=== PATIENT | male | born 2000 | race Caucasian/White ===

== ENCOUNTER 2022-05-02 16:24 | Outpatient (CLI) | payer BC, SELFPAY ==
[2022-05-02 17:24] LABS: Chloride* 105 mmol/L (96-114); Potassium* 3.8 mmol/L (3.6-5.1); Sodium* 140 mmol/L (135-149)
[2022-05-02 17:26] LABS: Cholesterol* 171 mg/dL (90-199); Creatinine* 0.9 mg/dL (0.5-1.5); Estimated Glomerular Filt Rate 124 ml/min
[2022-05-02 17:27] LABS: Blood Urea Nitrogen* 21 mg/dL (5-24); Carbon Dioxide* 23 mmol/L (20-32)
[2022-05-02 17:28] LABS: Calcium* 9.4 mg/dL (8.4-10.6); Glucose* 83 mg/dL (60-115); HDL Cholesterol* 30 mg/dL (>=40); LDL Cholesterol Calculated 73 mg/dL (<100); Triglycerides* 338 mg/dL (40-149)
[2022-05-02 17:31] LABS: C Reactive Protein* < 0.5 mg/dL (0.5-1.0)
[2022-05-04 19:30] LABS: Rheumatoid Factor <10 IU/mL (0-14)
[2022-05-05 00:11] LABS: Anti-Nuclear Ab(ANA)IgG ELISA None Detected (None Detected)
== END 2022-05-02 16:25 | disposition home or self-care (01) ==
PROVIDERS: PCP Family Medicine; Visit Provider Family Medicine
DX: I10 Essential (primary) hypertension (principal); M25.50 Pain in unspecified joint
CPT/HCPCS: 80048; 80061; 86039; 86140; 86431

== ENCOUNTER 2022-05-22 10:50 | Outpatient (CLI) | payer BC, SELFPAY ==
--- NOTE | 2022-05-22 11:30 | W.PM.STED ---
Stress Test Note Date Time Seen by Provider: 11:15 Date Seen: 05/22/22 Date of test: 05/22/22 Providers Referring provider: Manjit Dunn Primary care provider: Manjit Dunn Stress test physician: Aubree Lawton Stress Test Note Stress test ordered: Exercise Stress Test Indication for test: Chest pain Stress test medicine: None Results discussion: Resting EKG: Sinus rhythm, 97 beats per minute, no acute pathology. Resting blood pressure: 120/74 Stress test: Patient's cardiac stress test medical history was reviewed. He is consented on the stress test and agrees to proceed. He was exercised following standard Brayan protocol on the treadmill. Initially there was some artifact and malfunction of the V1 lead which was able to be corrected. He exercised to 10 minutes 8 seconds, stopping due to fatigue, maximal exercise tolerance. He had no chest pain, no arrhythmia was seen, no concerning ischemic change seen on the EKG. He achieved 11.7 metabolic equivalents at this work load. He had a maximum heart rate of 180 beats per minute which was 100% of a calculated target of 168. He had a maximal systolic blood pressure of 170 any rate pressure product of 27,540. Patient was discharged in stable condition, no concerns. With the maximum workload, he did note that he did get a headache and did have calf discomfort with the incline on the treadmill. His headache resolved with activity. 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 Impression: Subjectively negative, objectively negative treadmill exercise stress test. Follow up suggested: Await follow-up recommendations from Dr. Dunn.
[2022-05-22 12:11] VITALS: BP 136/58; PULSE 117; RESP 18
== END 2022-05-22 10:51 | disposition home or self-care (01) ==
PROVIDERS: PCP Family Medicine; Visit Provider Family Medicine
DX: R07.89 Other chest pain (principal)
CPT/HCPCS: 93016; 93017

== ENCOUNTER 2022-08-15 11:07 | Outpatient (CLI) | payer BC, SELFPAY | END 2022-08-15 11:08 | disposition home or self-care (01) | PROVIDERS: PCP Family Medicine; Visit Provider Family Medicine | DX: Z01.818 Encounter for other preprocedural examination (principal); I10 Essential (primary) hypertension | CPT/HCPCS: 80048 ==

== ENCOUNTER 2023-06-15 12:26 | Emergency (ER) | payer BC, SELFPAY ==
[2023-06-15 13:09] VITALS: BP 140/95; PULSE 78; RESP 16; TEMP 36.7; O2SAT 97; BMI 32.1
--- NOTE | 2023-06-15 13:27 | ED.GENADULT ---
HPI - General Adult General Chief complaint: Abdominal Pain Stated complaint: chest and stomach pains Time Seen by Provider: 06/15/23 13:03 Source: patient Mode of arrival: ambulatory Limitations: no limitations History of Present Illness HPI narrative: 23-year-old male coming in today complaining of abdominal pain. Pain is located in the epigastric region and does not radiate. Eating sometimes makes it worse. He has had it for or many months, has been constant over the last 2 days. He vomited recently also. Denies any blood in his vomitus. Denies any fevers or chills. Denies any weight loss. Every now and then he will have diarrhea. Denies any urinary symptoms. He also states that when he eats certain foods he feels a burning sensation all the way up to his throat. His diet is heavy on ?spicy food, chocolate and alcohol. Past medical history significant for anxiety, hypertension. Patient states he has not been taking his medications in the last 6-8 months. Patient had a stress test in 2022 which was unremarkable. Related Data Previous Rx's Medication Instructions Recorded lisinopril 20 1 tab PO DAILY #90 tabs 08/15/22 mg-hydrochlorothiazide 12.5 mg tablet sertraline 100 mg tablet 100 mg PO QDAY #30 tabs 08/15/22 Allergies Allergy/AdvReac Type Severity Reaction Status Date / Time Clavulanate Allergy Mild severe Uncoded 08/15/22 10:51 diarrhea Review of Systems Status of ROS: Reports: 10 or more systems reviewed and unremarkable except as noted in History and below [facility] Medical History Situational depression ?F43.21 - Adjustment disorder with depressed mood (ICD-10) Hypertension ?I10 - Essential (primary) hypertension (ICD-10) Generalized anxiety disorder ?F41.1 - Generalized anxiety disorder (ICD-10) Family History Father Heart disease Paternal Grandfather Heart disease Mother Family history of cervical cancer Social History Narrative: Single, no kids, nonsmoker, social EtOH, works at [employer] Smoking Status: Never smoker Do you use any of these nicotine containing products: None Second hand tobacco smoke exposure: No How often do you have a drink containing alcohol: 2-4 times a month How many standard drinks containing alcohol do you have on a typical day: 1 or 2 How often do you have six or more drinks on one occasion: Never AUDIT-C Alcohol total score: 2 Non-prescribed substance use: denies use Little interest or pleasure in doing things: not at all Feeling down, depressed, or hopeless: not at all service: No Exam Narrative: Exam Narrative: Well-nourished well-developed patient in no acute distress. Alert and oriented. Answers questions appropriately. Mood and affect are appropriate. Thoughts are goal oriented and rational. No tangential or magical thinking noted. Patient speaks in full sentences without needing to catch his breath. HEENT: Normocephalic atraumatic. Pupils are equally round reactive to light. Extraocular muscles are intact. Conjunctivae are moist without any icterus noted. Moist mucous membranes. Posterior pharynx is normal. Neck is soft. Cardiovascular: Heart is regular rate and rhythm S1 and S2 are present without any murmurs. Lungs: Clear to auscultation bilaterally no wheezes rhonchi or rales are appreciated. Patient takes deep breaths without any discomfort. Abdomen: Soft and nondistended with normal bowel sounds. No guarding or rebound. No masses or organomegaly appreciated. He does have epigastric tenderness. Extremities: Bilateral lower extremities are without edema. Skin: Well perfused without any obvious rashes. Const: Vital Signs, click to edit/add: Vital Signs - 24 hr 06/15/23 13:09 Temperature 98.1 F Pulse Rate [Pulse Oximeter] 78 Respiratory Rate 16 Blood Pressure [Le ft Upper Arm] 140/95 H Pulse Oximetry 97 Oxygen Delivery Me thod Room Air Course Vital Signs Vital signs: Initial Vital Signs Temperature 98.1 F 06/15/23 13:09 Temperature Source Temporal Artery Scan 06/15/23 13:09 Pulse Rate 78 06/15/23 13:09 Pulse Rhythm Regular 06/15/23 13:09 Respiratory Rate 16 06/15/23 13:09 Blood Pressure 140/95 H 06/15/23 13:09 Blood Pressure Mean 110 H 06/15/23 13:09 Blood Pressure Position Sitting 06/15/23 13:09 Pulse Oximetry 97 06/15/23 13:09 Oxygen Delivery Method Room Air 06/15/23 13:09 Vital Signs Temperature 98.1 F 06/15/23 13:09 Pulse Rate 78 06/15/23 13:09 Respiratory Rate 16 06/15/23 13:09 Blood Pressure 140/95 H 06/15/23 13:09 Pulse Oximetry 97 06/15/23 13:09 Oxygen Delivery Method Room Air 06/15/23 13:09 Temperature 98.1 F 06/15/23 13:09 Pulse Rate 78 06/15/23 13:09 Respiratory Rate 16 06/15/23 13:09 Blood Pressure 140/95 H 06/15/23 13:09 Pulse Oximetry 97 06/15/23 13:09 Oxygen Delivery Method Room Air 06/15/23 13:09 Medical Decision Making MDM Narrative Medical decision making narrative: 23-year-old male with epigastric abdominal discomfort- we discussed gastritis versus peptic ulcer. We discussed starting daily omeprazole. We discussed following up with his primary care provider in 4-6 weeks, sooner if symptoms get worse. We discussed dietary changes and recommend he start taking his medications again for high blood pressure. Medical Records Medical records reviewed: Yes I reviewed the patient's medical records Discharge Plan Discharge Clinical Impression: Gastritis, Gastroesophageal reflux disease Patient Disposition: Home, Self-Care Condition: Stable Additional Instructions: You likely have gastritis, which is an inflammation of the stomach, or a small ulcer. The treatment for both of these things is to reduce the amount of acid inside the stomach. You accomplish this by taking daily omeprazole. You can purchase this [id number]. Recommend you take this for 6 weeks. Recommend you follow-up with your primary care provider in 4-6 weeks for a follow-up, sooner if your symptoms are getting worse instead of better. It will take approximately 1 week for the discomfort to go way. In the meantime recommend not eating before bed, decreasing the amount of spicy foods, citrus, tomatoes, chocolate and alcohol you consume. Also, I recommend you start taking your blood pressure medications once again. Prescriptions: No Action lisinopril-hydrochlorothiazide 20-12.5 mg tablet 1 tab PO DAILY Qty: 90 3RF sertraline 100 mg tablet 100 mg PO QDAY Qty: 30 1RF Rx Instructions: 1/2 QD x 10 days then 1 QD Follow Up/Referrals: Manjit Dunn MD [Primary Care Provider] - Stand Alone Forms: MyHealth Info Instructions
[2023-06-15 13:40] VITALS: BP 145/80; PULSE 8; RESP 16; TEMP 36.7
--- OUTSIDE RECORDS SUMMARY | 2023-06-15 13:40 | XMS_ITS | Encounter Summary ---
Author Name Unknown Organization [facility] Address [address], [place] [address] Care Team Providers Care Medical Records Coder Name Role Phone Unavailable Primary Care Provider Unavailabl e Reason for Referral * Procedure/Equipment (Routine) - Incomplete Specialty Diagnoses / Procedures Referred By Contac t Referred To Contact Procedures JO Inlight Camera Images Talib Ibrahim MD [address] [place] [address] Referral ID Status Reason Start Date Expiration Date V isits Requested Visits Authorized [id number] Incomplete 09/05/2022 12/05/2023 1 1 * Procedure/Equipment (Routine) - Incomplete Specialty Diagnoses / Procedures Referred By Contac t Referred To Contact Procedures JO Arthroscopy Elbow Rt Talib Ibrahim MD [address] [place] [address] Referral ID Status Reason Start Date Expiration Date V isits Requested Visits Authorized [id number] Incomplete 09/05/2022 12/05/2023 1 1 Encounter Details Date Type Department Care Team Description 09/05/2022 Notes/Orders [facility] [address] [place] [address] Talib Ibrahim MD [address] [place] [address] Social History Tobacco Use Types Packs/Day Years Used Date Smoking Tobacco: Never Smokeless Tobacco: Never Alcohol Use Standard Drinks/Week Comments Yes 0 (1 standard drink = 0.6 oz pur e alcohol) Sex and Gender Information Value Date Recorded Sex Assigned at Not on file Gender Identity Not on file Sexual Orientation Not on file documented as of this encounter Plan of Treatment Scheduled Orders Name Type Priority Associated Diagnoses Orde r Schedule JO Inlight Camera Images RIS Foreign Images Routine Expected: 09/05/2022 (Approximate), Expires: 09/05/2023 documented as of this encounter Results * JO Arthroscopy Elbow Rt (09/05/2022 7:04 AM CDT) Anatomical Region Laterality Modality Upper Extremity, Elbow Endoscopy Narrative 09/05/2022 7:04 AM CDT This is an imaging order which does not require reading by a radiologist. The order is completed and status is final. Talib Ibrahim MD RAD NON-REPORTABLES documented in this encounter Visit Diagnoses Not on filedocumented in this encounter
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
--- OUTSIDE RECORDS SUMMARY | 2023-06-15 13:40 | XMS_ITS | Encounter Summary ---
Author Name Unknown Organization [facility] Address [address] [address] Care Team Providers Care Bi Application Developer Name Role Phone Unavailable Primary Care Provider Unavailabl e Encounter Details Date Type Department Care Team Description 09/05/2022 Orders Only HIM DEPARTMENT Provider, [place] [address] Social History Tobacco Use Types Packs/Day Years Used Date Smoking Tobacco: Never Smokeless Tobacco: Never Alcohol Use Standard Drinks/Week Comments Yes 0 (1 standard drink = 0.6 oz pur e alcohol) Sex and Gender Information Value Date Recorded Sex Assigned at Not on file Gender Identity Not on file Sexual Orientation Not on file documented as of this encounter Plan of Treatment Not on file documented as of this encounter Procedures Procedure Name Priority Date/Time Associated Diagnosis Comments EKG 09/05/2022 documented in this encounter Results * EKG (09/05/2022) Interface Provider EKG documented in this encounter Visit Diagnoses Not on filedocumented in this encounter
--- OUTSIDE RECORDS SUMMARY | 2023-06-15 13:40 | XMS_ITS | Encounter Summary ---
Author Name Unknown Organization [facility] Address [address] [address] Care Team Providers Care Pesticide Control Inspector Name Role Phone Unavailable Primary Care Provider Unavailabl e Reason for Visit * Auth/Cert (Routine) Specialty Diagnoses / Procedures Referred By Contac t Referred To Contact Diagnoses Elbow stiffness, left Procedures ARTHROSCOPic ELBOW DEBRIDEMENT OCD LESION, OSTEOCAPSULAR RELEASE, OPEN ULNAR NERVE DECOMPRESSION POSSIBLE TRANSPOSITION, MANIPULATION UNDER ANESTHESIA Referral ID Status Reason Start Date Expiration Date Visits Re quested Visits Authorized [id number] 1 1 Encounter Details Date Type Department Care Team Description 09/05/2022 8:30 AM CDT - 09/05/2022 11:20 AM CDT Surgery [facility] [address] [place] [address] Talib Ibrahim MD [address] [place] [id number] ARTHROSCOPIC ELBOW DEBRIDEMENT Osteochondritis Dissecans LESION, OSTEOCAPSULAR RELEASE, OPEN ULNAR NERVE DECOMPRESSION, MANIPULATION UNDER ANESTHESIA Social History Tobacco Use Types Packs/Day Years Used Date Smoking Tobacco: Never Smokeless Tobacco: Never Alcohol Use Standard Drinks/Week Comments Yes 0 (1 standard drink = 0.6 oz pur e alcohol) Sex and Gender Information Value Date Recorded Sex Assigned at Not on file Gender Identity Not on file Sexual Orientation Not on file documented as of this encounter Last Filed Vital Signs Vital Sign Reading Time Taken Comments Blood Pressure 116/50 09/05/2022 11:20 AM CDT Pulse 86 09/05/2022 11:20 AM CDT Temperature 36.6 ??C (97.8 ??F) 09/05/2022 11:16 AM C DT Respiratory Rate 09/05/2022 11:20 AM CDT Oxygen Saturation 97% 09/05/2022 11:20 AM CDT Inhaled Oxygen Concentration - - Weight 109.3 kg (241 lb) 09/05/2022 7:12 AM CDT Height 177.8 cm (5' 10) 09/05/2022 7:12 AM CDT Body Mass Index 34.58 09/05/2022 7:12 AM CDT documented in this encounter Discharge Instructions * Discharge Instructions* Anjelica Noriega RN - 09/05/2022 11:10 AM CDT Discharge Information The following was provided to the patient - Instruction sets: Caring for yourself after surgery Caring for yourself after Shoulder Arthroscopy Collateral information: Anesthesia Discharge Instructions Anesthesia - General Anesthesia - Regional Deep Vein Thrombosis How to prevent and treat constipation after surgery Prescription Opioid Pain Medication Shoulder Pendulum Exercises Patient take-homes: Ice pack(s) Shoulder immobilizer Sling Ultrasling * Attachments The following attachments cannot be sent through Care Everywhere. * DVT (Deep Vein Thrombosis): Prevention: General Info (Setswana) documented in this encounter Medications at Time of Discharge Medication Sig Dispensed Refills Start Date End Date gabapentin (NEURONTIN) 300 MG capsule Take 1 Capsule (300 mg) by mouth two times a day. 30 Capsule 3 09/05/2022 09/05/2023 lisinopril-hydroCHLOROth iazide (PRINZIDE) 20-12.5 MG tablet Take 1 Tablet by mouth daily. 0 methocarbamol (ROBAXIN) 500 MG tablet Take 1 Tablet (500 mg) by mouth three times a day as needed. 60 Tablet 1 09/05/2022 sertraline (ZOLOFT) 100 MG tablet Take 1 Tablet (100 mg) by mouth daily. 0 acetaminophen (TYLENOL) 500 MG tablet Take 2 Tablets (1,000 mg) by mouth every 8 hours. 270 Tablet 2 09/05/2022 10/20/2022 ketorolac (TORADOL) 10 MG tablet Take 1 Tablet (10 mg) by mouth every 8 hours for 3 doses. 3 Tablet 0 09/05/2022 09/06/2022 ondansetron (ZOFRAN-ODT) 4 MG disintegrating tablet Take 1 Tablet (4 mg) by mouth every 8 hours as needed. 10 Tablet 1 09/05/2022 10/20/2022 oxyCODONE (ROXICODONE) 5 MG immediate release tablet Take 1-2 Tablets (5-10 mg) by mouth every 4 hours as needed for Pain. 20 Tablet 0 09/05/2022 10/20/2022 sennosides-docusate sodium (SENOKOT S) 8.6-50 MG per tablet Take 1 Tablet by mouth daily. Hold for diarrhea 15 Tablet 1 09/05/2022 10/20/2022 documented as of this encounter Procedure Notes * Talib Ibrahim MD - 09/05/2022 8:05 PM CDT [facility] Orthopedic Surgery Operative Note PATIENT NAME: Hong Barnes DATE OF : 2000 DATE OF SURGERY: 09/05/2022 PRIMARY SURGEON: Talib Ibrahim MD ASSISTANTS: MAURA Smith MACHINE SIZER: There were no residents available to assist on this case. Andrew was required as a geriatric assistant to assist with positioning of the patient, prepping and draping of the patient, positioning of the extremity throughout the procedure allowing for retraction and implantation of the components. The assistant track coach also assisted with closure of the wound, placement of the dressings and transferred the patient to the recovery room in addition to entering postoperative orders. 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 Left elbow arthroscopic osteo-capsular release 2. Left elbow removal loose body 3. Left elbow debridement OCD lesion / chondroplasty 4. Left elbow capitellum microfracture 5. Left elbow manipulation under anesthesia 6. Left elbow ulnar nerve decompression in-situ Anesthesia: General Endotracheal Anesthesia + Local ESTIMATED BLOOD LOSS: 5 mL TOURNIQUET TIME: 70min at 250mm Hg SPECIMENS: None COMPLICATIONS: None FINDINGS: A complete diagnostic arthroscopy of the elbow was performed showing grade 0 radial head, 0 trochlea and 0 capitellar cartilage changes. There was a 1cm unstable OCD lession capitellum. The anterior compartment showed a loose body and spurs on the anterior humerus and coronoid, the posterior compartment showedspurs about the olecranon tip. Pre-op elbow range of motion measures 20- 100. Post-op elbow range of motion measures 0-140. IMPLANTS: None INDICATIONS: Hong Barnes is a 22 y.o. male who has failed conservative treatment for elbow stiffness and ulnar neuritis. discussing the options including injection, watching waiting, therapy, and surgery, he elected to proceed with surgery as a durable option. We discussed the risks benefits and alternatives to the above procedures including infection, recurrent stiffness, heterotopic ossification, ulnar nerve injury, delayed onset ulnar neuritis, and symptoms, arthritis, incomplete reliefof pain, weakness, neurovascular injury, cardiovascular injury, blood loss, hematoma, blood clot and even . The patient wished to proceed and consent was signed. DESCRIPTION OF PROCEDURE: Hong Barnes was identified in the preoperative holding area, where the correct extremity was marked. Consent was verified. The patient was wheeled to the operating theater and induced under general endotracheal anesthesia. An exam under anesthesia was performed with the findings noted above. The patient was positioned in the lateral decubitus position on a beanbag with all bony prominencespadded. The operative arm was prepped and draped in a standard fashion and held using an elbow positioner. A time-out was performed per hospital protocol. I performed a 6cm incision along the posteromedial elbow. I dissected sharply down to fascia. I then coagulated the bleeders. The ulnar nerve was bluntly identified proximally and was carefully released from the ligament of Macon through Clifton's ligament and then releasing both layers of the FCU fascia. The nerve did not sublux. Using a spinal needle I insufflated the joint with normal saline into the olecranon fossa. I then established an anterior medial working portal 1cm proximal and 1cm anterior to the medial epicondyle through the ulnar nerve incision with visualization of the nerve. . The scope was safely inserted into the joint and an anterior diagnostic arthroscopy was performed. Using an outside in technique I created an anterolateral working portal 1cm proximal and 1cm anterior to be medial epicondyle. I used an anterior to dissect the anterior supracondylar aspect of the humerus where an osteophyte was identified and excised with a bur. I removed spurring from the coronoid and a loose body was removed. I contoured both the anterior medial and anterior lateral aspect of the elbow by switching portals and re- created the coronoid and radial head fossa. I did a brief synovectomy with a shaver. I was able to used an elevator to release and remove the unstable capitellum OCD lesion and used a shaver to remove debris and unstable edges. I then performed a microfracture. I proceeded to the posterior aspect of the elbow with a direct posterior soft spot portal and a posterior lateral portal. I worked between these 2 with a shaver and ablator to remove all the bursa from the posterior aspect of the olecranon fossa. Osteophytes were removed from the olecranon tip, theolecranon fossa was contoured and olecranon tip was excised with a stefani. All instruments were removed from the elbow, the elbow was exsanguinated of arthroscopic fluid and the tourniquet was released. A manipulation under anesthesia was performed safely alternating from static progressive flexion and terminal extension resulting in improved range of motion noted above. The medial wound was closed with 3-0 vicryl for dermis and Monocryl for skin. The arthroscopic portals were closed with monacryl. The patient was safely awoken from anesthesia and transferred to the supine position. A sling was placed. There were no complications. I was scrubbed for all donato portions of procedure. All counts were correct. POSTOPERATIVE PLAN: Myeroff elbow release protocol. Elviaeroff elbow release OT protocol Same day and next day active visits while block is effective Immediate active, active assist, and passive elbow range of motion Edema control OT provided terminal extension night splint x 6 weeks min TID home exercise program including elbow wrist finger ROM. Sling while block is active and as needed for 2wks max Activities as tolerated no restrictions F/U: 2 and 6 weeks with Iban Carrera 12 ellen Ibrahim MD. No X-rays needed. Talib Ibrahim MD Attending Orthopaedic Surgeon [facility] Shoulder and Elbow Service * Sandip Alvarado PA-C - 09/05/2022 11:18 AM CDT [facility] Brief Operative Progress Note Surgery Date: 09/05/2022 Surgeon(s) and Role: * Talib Ibrahim MD - Primary * Sandip Alvarado PA-C - Assisting Pre-op Diagnosis: * Elbow stiffness, left [M25.622] Post-op Diagnosis: * Elbow stiffness, left [M25.622] Procedure(s) (LRB): ARTHROSCOPic ELBOW DEBRIDEMENT OCD LESION, OSTEOCAPSULAR RELEASE, OPEN ULNAR NERVE DECOMPRESSION, MANIPULATION UNDER ANESTHESIA (Left) EBL: 5 mL Tourniquet time: 70 min @ 250 mmHg Specimens: * No specimens in log * Complications / Findings: none I was asked by Dr. Ibrahim to assist with surgery. I positioned and prepped the patient. I assistedwith retraction and with closure of the incision. The procedure was medically necessary for an assistant track coach because Dr. Ibrahim needed the operative exposure and assistance that I provided. This allowedhim to safely and efficiently operate. The assistance that I provided reduced operative time which meant less general anesthetic for the patient. No qualified residents were available to assist. Sandip Alvarado PA-C documented in this encounter Plan of Treatment Not on file documented as of this encounter Procedures Procedure Name Priority Date/Time Associated Diagnosis Comments ARTHROSCOPY ELBOW 09/05/2022 8:3 6 AM CDT Elbow stiffness, left US ANESTHESIA GUIDED BLOCK Routine 09/05/2022 7:07 AM CDT documented in this encounter Results * US Anesthesia Guided Block (09/05/2022 7:07 AM CDT) Anatomical Region Laterality Modality Ultrasound Narrative 09/05/2022 7:07 AM CDT If an Anesthesia block was performed please see the Anesthesia encounter for documentation. ??This procedure was performed and interpreted by the performing provider. ?? Benjamin Hayes MD [facility] US documented in this encounter Visit Diagnoses Diagnosis Elbow stiffness, left- Primary Elbow stiffness, left documented in this encounter Admitting Diagnoses Diagnosis Elbow stiffness, left documented in this encounter Administered Medications Inactive Administered Medications - up to 3 most recent administrations Medication Order MAR Action Action Date Dose Rate Site acetaminophen (TYLENOL) tablet 1,000 mg 1,000 mg, Oral, ONCE (NON-SCHEDULED), Starting on Thu09/05/22 at 0707, Until Thu09/05/22 at 0729, For 1 dose, Adminster X1 pre-op., Pre-op Given 09/05/2022 7:29 AM CDT 1,000 mg bupivacaine-epinephrine PF (SENSORCAINE) 0.5% -[id number] injection ONCE PRN, Starting on Thu09/05/22 at 1054, Until Thu09/08/22 at 0301, Intra-op Given 09/05/2022 10:54 AM CDT 25 mL Left Elbow dexamethasone (DECADRON) injection 4-8 mg 4-8 mg, Intravenous, Q15MIN PRN, Other, Nausea, Starting on Thu09/05/22 at 1049, Until Thu09/08/22 at 0301, For 2 doses, Step 2 Dexamethasone 4-8 mg IV If not given in operating room. (Use in PACU only). If medication given in OR may give up to 8 mg total dose (including intra-operative dose) or go to step 3. If nausea not resolved in 15 minutes go to step 3 if ordered otherwise proceed to next antiemetic step.., PACU (only) fentaNYL (SUBLIMAZE) injection 25-50 mcg 25-50 mcg, Intravenous, PRN WITH PROCEDURES, Procedure, Starting on Thu09/05/22 at 0707, Until Thu09/08/22 at 0301, Administer per direction of Anesthesiologist., Pre-op fentaNYL (SUBLIMAZE) injection 25-50 mcg 25-50 mcg, Intravenous, [id number], Pain, Starting on Thu09/05/22 at 1049, Until Thu09/08/22 at 0301, PACU USE ONLY 25 mcg IV q5min prn based on the patient's pain scale rating for mild to moderate pain (1 to 5). 50 mcg IV q5min prn based on the patient's pain scale rating for moderate to severe pain (6 to 10). Total PACU fentanyl dose not to exceed 3 mcg/kg. Use fentanyl initially for a short acting agent for treatment of acute post operative pain. May use in conjuction with a longer acting agent for optimal pain control. Respiratory rate must be greater than 10 to administer medications., PACU (only) gabapentin (NEURONTIN) capsule 600 mg 600 mg, Oral, ONCE (NON-SCHEDULED), Starting on Thu09/05/22 at 0707, Until Thu09/08/22 at 0301, For 1 dose, Adminster X1 pre-op., Pre-op HYDROcodone-acetaminophen (NORCO) 5-325 MG per tablet 1-2 Tablet 1-2 Tablet, Oral, ONCE PRN, Pain, Starting on Thu09/05/22 at 1049, Until Thu09/08/22 at 0301, For 1 dose, Do not give within 4 hours of other acetaminophen containing products. If multiple oral opioids are ordered, please consult provider for order of use. One tablet PO once PRN based on patient pain scale rating for mild to moderate pain (1 to 5) Two tablets PO once PRN based on patient pain scale rating for moderate to severe pain (6 to 10), PACU (only) HYDROmorphone (DILAUDID) injection 0.2-0.3 mg 0.2-0.3 mg, Intravenous, Q15MIN PRN, Pain, Starting on Thu09/05/22 at 1049, Until Thu09/08/22 at 0301, PACU USE ONLY 0.2 mg IV q15min prn based on the patients pain scale rating for mild to moderate pain (1-5) 0.3 mg IV q15min prn based on the patients pain scale rating for moderate to severe pain (6 to 10) Total PACU hydromorphone dose not to exceed 2 mg per hour., PACU (only) hydrOXYzine HCl (ATARAX) tablet 25-50 mg 25-50 mg, Oral, ONCE PRN, Pain, Starting on Thu09/05/22 at 1049, Until Thu09/08/22 at 0301, For 1 dose, May be used with other medications as adjunct for pain. 25 mg PO once PRN based on patient pain scale rating for mild to moderate pain (1 to 5) 50 mg PO once PRN based on patient pain scale rating for moderate to severe pain (6 to 10), PACU (only) lactated ringers infusion Intravenous, at 30 mL/hr, CONTINUOUS, Starting on Thu09/05/22 at 0730, Pre-op Started 09/05/2022 10:47 AM CDT Started 09/05/2022 8:42 AM CDT lactated ringers infusion 30 mL/hr, Intravenous, CONTINUOUS, Starting on Thu09/05/22 at 0730, Pre-op midazolam (VERSED) injection 1-2 mg 1-2 mg, Intravenous, PRN WITH PROCEDURES, Sedation, Procedure, Starting on Thu09/05/22 at 0707, Until Thu09/08/22 at 0301, For 3 doses, May give up to 3 doses as needed., Pre-op ondansetron (ZOFRAN) injection 4 mg 4 mg, Intravenous, Q15MIN PRN, Nausea, Starting on Thu09/05/22 at 1049, Until Thu09/08/22 at 0301, For 2 doses, Step 1 Ondansetron 4 mg IV If not given in operating room. (PACU use only) If an intra-operative dose was given may repeat up to a total dose of 8 mg (including intra-operative dose). If nausea is not resolved in 15 minutes go to step 2 (Dexamethasone) if ordered otherwise proceed to next antiemetic step., PACU (only) oxyCODONE (ROXICODONE) immediate release tablet 5 mg 5 mg, Oral, Q4H PRN, Pain, Starting on Thu09/05/22 at 1137, Until Thu09/08/22 at 0301, PACU/Recovery Given 09/05/2022 11:38 AM CDT 5 mg oxyCODONE-acetaminophen (PERCOCET) 5-325 MG per tablet 1-2 Tablet 1-2 Tablet, Oral, ONCE PRN, Pain, Starting on Thu09/05/22 at 1049, Until Thu09/08/22 at 0301, For 1 dose, Do not give within 4 hours of other acetaminophen containing products. If multiple oral opioids are ordered, please consult provider for order of use. One tablet PO once PRN based on patient pain scale rating for mild to moderate pain (1 to 5) Two tablets PO once PRN based on patient pain scale rating for moderate to severe pain (6 to 10), PACU (only) documented in this encounter Active and Recently Administered Medications Times are shown in CDT. Scheduled Medication Order 09/03/2022 09/04/2022 09/05/2022 acetaminophen (TYLENOL) tablet 1,000 mg (COMPLETED) 1,000 mg, Oral, ONCE (NON-SCHEDULED), Starting on Thu09/05/22 at 0707, Until Thu09/05/22 at 0729, For 1 dose, Adminster X1 pre-op., Pre-op 0729 (Given - Provid er: Davida Brooks RN) ceFAZolin (ANCEF) 2 g in sodium chloride 0.9 % 50 mL IVPB (COMPLETED) 2 g, Intravenous, Administer over 30 Minutes, ONCE (NON-SCHEDULED), Starting on Thu09/05/22 at 0707, For 1 dose, For patient weight less than or equal to 119 kg PRE-OP, Pre-op 0842 (Started - Prov ider: Demetrius Menendez APRN, ALEJANDRO) gabapentin (NEURONTIN) capsule 600 mg 600 mg, Oral, ONCE (NON-SCHEDULED), Starting on Thu09/05/22 at 0707, Until Thu09/08/22 at 0301, For 1 dose, Adminster X1 pre-op., Pre-op tranexamic acid (CYKLOKAPRON) 1000 mg in sodium chloride 0.9% (10 mg/mL) 100 mL IVPB premix (COMPLETED)(Linked Group 1) 1,000 mg, Intravenous, ONCE, On Thu09/05/22 at 0730, For 1 dose, Administer once at incision and once at start of closure., Pre-op 0939 (Given - Provid er: Ty Bennett APRN, ALEJANDRO) Continuous Medication Order 09/03/2022 09/04/2022 09/05/2022 lactated ringers infusion Intravenous, at 30 mL/hr, CONTINUOUS, Starting on Thu09/05/22 at 0730, Pre-op 0842 (Started - Prov ider: Demetrius Menendez APRN, ALEJANDRO)0939 (Anesthesia Fluid - Provider: Ty Bennett APRN, ALEJANDRO)1047 (Started - Provider: Ty Bennett APRN, ALEJANDRO)1110 (Anesthesia Fluid - Provider: Ty Bennett APRN, ALEJANDRO) lactated ringers infusion 30 mL/hr, Intravenous, CONTINUOUS, Starting on Thu09/05/22 at 0730, Pre-op 0730 (Due) PRN Medication Order 09/03/2022 09/04/2022 09/05/2022 bupivacaine-epinephrine PF (SENSORCAINE) 0.5% -1:[id number] injection ONCE PRN, Starting on Thu09/05/22 at 1054, Until Thu09/08/22 at 0301, Intra-op 1054 (Given - Provid er: Sandip Alvarado PA-C) dexamethasone (DECADRON) injection 4-8 mg 4-8 mg, Intravenous, Q15MIN PRN, Other, Nausea, Starting on Thu09/05/22 at 1049, Until Thu09/08/22 at 0301, For 2 doses, Step 2 Dexamethasone 4-8 mg IV If not given in operating room. (Use in PACU only). If medication given in OR may give up to 8 mg total dose (including intra-operative dose) or go to step 3. If nausea not resolved in 15 minutes go to step 3 if ordered otherwise proceed to next antiemetic step.., PACU (only) fentaNYL (SUBLIMAZE) injection 25-50 mcg 25-50 mcg, Intravenous, PRN WITH PROCEDURES, Procedure, Starting on Thu09/05/22 at 0707, Until Thu09/08/22 at 0301, Administer per direction of Anesthesiologist., Pre-op fentaNYL (SUBLIMAZE) injection 25-50 mcg 25-50 mcg, Intravenous, [id number], Pain, Starting on Thu09/05/22 at 1049, Until Thu09/08/22 at 0301, PACU USE ONLY 25 mcg IV q5min prn based on the patient's pain scale rating for mild to moderate pain (1 to 5). 50 mcg IV q5min prn based on the patient's pain scale rating for moderate to severe pain (6 to 10). Total PACU fentanyl dose not to exceed 3 mcg/kg. Use fentanyl initially for a short acting agent for treatment of acute post operative pain. May use in conjuction with a longer acting agent for optimal pain control. Respiratory rate must be greater than 10 to administer medications., PACU (only) HYDROcodone-acetaminophen (NORCO) 5-325 MG per tablet 1-2 Tablet 1-2 Tablet, Oral, ONCE PRN, Pain, Starting on Thu09/05/22 at 1049, Until Thu09/08/22 at 0301, For 1 dose, Do not give within 4 hours of other acetaminophen containing products. If multiple oral opioids are ordered, please consult provider for order of use. One tablet PO once PRN based on patient pain scale rating for mild to moderate pain (1 to 5) Two tablets PO once PRN based on patient pain scale rating for moderate to severe pain (6 to 10), PACU (only) HYDROmorphone (DILAUDID) injection 0.2-0.3 mg 0.2-0.3 mg, Intravenous, Q15MIN PRN, Pain, Starting on Thu09/05/22 at 1049, Until Thu09/08/22 at 0301, PACU USE ONLY 0.2 mg IV q15min prn based on the patients pain scale rating for mild to moderate pain (1-5) 0.3 mg IV q15min prn based on the patients pain scale rating for moderate to severe pain (6 to 10) Total PACU hydromorphone dose not to exceed 2 mg per hour., PACU (only) hydrOXYzine HCl (ATARAX) tablet 25-50 mg 25-50 mg, Oral, ONCE PRN, Pain, Starting on Thu09/05/22 at 1049, Until Thu09/08/22 at 0301, For 1 dose, May be used with other medications as adjunct for pain. 25 mg PO once PRN based on patient pain scale rating for mild to moderate pain (1 to 5) 50 mg PO once PRN based on patient pain scale rating for moderate to severe pain (6 to 10), PACU (only) midazolam (VERSED) injection 1-2 mg 1-2 mg, Intravenous, PRN WITH PROCEDURES, Sedation, Procedure, Starting on Thu09/05/22 at 0707, Until Thu09/08/22 at 0301, For 3 doses, May give up to 3 doses as needed., Pre-op ondansetron (ZOFRAN) injection 4 mg 4 mg, Intravenous, Q15MIN PRN, Nausea, Starting on Thu09/05/22 at 1049, Until Thu09/08/22 at 0301, For 2 doses, Step 1 Ondansetron 4 mg IV If not given in operating room. (PACU use only) If an intra-operative dose was given may repeat up to a total dose of 8 mg (including intra-operative dose). If nausea is not resolved in 15 minutes go to step 2 (Dexamethasone) if ordered otherwise proceed to next antiemetic step., PACU (only) oxyCODONE (ROXICODONE) immediate release tablet 5 mg 5 mg, Oral, Q4H PRN, Pain, Starting on Thu09/05/22 at 1137, Until 09/08/22 at 0301, PACU/Recovery 1138 (Given - Provid er: Anjelica Noriega RN) oxyCODONE-acetaminophen (PERCOCET) 5-325 MG per tablet 1-2 Tablet 1-2 Tablet, Oral, ONCE PRN, Pain, Starting on Thu09/05/22 at 1049, Until Thu09/08/22 at 0301, For 1 dose, Do not give within 4 hours of other acetaminophen containing products. If multiple oral opioids are ordered, please consult provider for order of use. One tablet PO once PRN based on patient pain scale rating for mild to moderate pain (1 to 5) Two tablets PO once PRN based on patient pain scale rating for moderate to severe pain (6 to 10), PACU (only) Linked Groups Order Group 1: tranexamic acid (CYKLOKAPRON) 1000 mg in sodium chloride 0.9% (10 mg/mL) 100 mL IVPB premix (COMPLETED)Jump to med 1,000 mg, Intravenous, ONCE, On Thu09/05/22 at 0730, For 1 dose
Administer once at incision and once at start of closure.
Pre-op Followed by tranexamic acid (CYKLOKAPRON) 1000 mg in sodium chloride 0.9% (10 mg/mL) 100 mL IVPB premix () 1,000 mg, Intravenous, ONCE, On Thu09/05/22 at 0730, For 1 dose
Administer once at incision and once at start of closure.
Pre-op documented in this encounter
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
--- OUTSIDE RECORDS SUMMARY | 2023-06-15 13:40 | XMS_ITS | Encounter Summary ---
Author Name Unknown Organization [facility] Address [address] [address] Care Team Providers Care Health Information Coder Name Role Phone Unavailable Primary Care Provider Unavailabl e Reason for Visit * Reason Comments Elbow Problem Encounter Details Date Type Department Care Team Description 09/30/2022 12:00 PM CDT Office Visit [facility] Hand Therapy [address] [place] [address] Lor Mantilla OTR/L [address] [place], [place] [phone] Left elbow pain (Primary Dx); Elbow stiffness, [...] Progress Notes * Lor Mantilla OTR/L - 09/30/2022 12:00 PM CDT Hand Occupational Therapy - [...] to no difficulty in 2 weeks. Goal MET The patient will be able to work with tools with minimal to no difficulty in 8 weeks. Goal progressing SUBJECTIVE: Patient is 3 week 4 days post-operative. Pt notes the elbow is doing pretty good, but it gets stiff (along antecubital fossa/biceps). Pt notes he is using his arm for many daily activities, including yard work. OBJECTIVE: Pain: Resting pain 0/10. Pain with activity up to 2-4/10. Description/frequency of pain: sharp, achy. Location: anterior elbow. Edema: Circumferential measurements in cm: Right 09/15/2022 Left 09/30/2022 Elbow Crease 30.5 31.3 Incision/Wound: Closed, raised, healing well, mildly tender. Pliable. Improving sensation per report. AROM: 0-140 Post op measurement on op note. Elbow AROM Right 09/15/2022 Left 09/15/2022 Left 09/23/2022 Left 09/30/2022 Extension/Flexion 1139 30/129 Post: 20/130 20/135 Post: 17/138 10/140 Post:8/140 Supination/Pronation 78/82 75/82 WNL NT Sensation: The patient reports their sensation is intact. TODAY'S TREATMENT INTERVENTION: Manual Therapy CPT 39037 (10 minutes) Therapist completes Gua Sha to biceps/forearm followed by hands on STM to loosen tight biceps priorto stretching. Grade I, II joint elbow joint mobilizations prior to sets of stretching. Therapeutic Exercise CPT 95013 (20 minutes) Exercise: Therapist reviewed with pt and pt completes elbow/forearm AROM, AAROM with dowel for elbow flexion/extension and elbow flexion/extension in supine on plinth after therapist completes PROM of pt's elbow in extension primarily and a few reps in prolonged flexion after extension stretching. Advanced to proximal ulnar nerve glide to tension only, 5-10 reps, 3-4 x day. Timed Code Treatment Minutes: 30 Total Treatment Minutes: 30 ASSESSMENT: Pt is now WNL in elbow flexion and WFL in elbow extension, nearing his baseline AROM here as well. Pt will continue to benefit from skilled OT for 1 more visit after MD follow up next week. PLAN: The patient will return for additional therapy in 1 week. Then likely D/C to (I) HEP. Next Treatment Session: IASTM,AROM/AAROM/PROM Therapist Signature: Lor Mantilla OTR/L, MOT, CHT, #[id number]([place]), #[id number]([place]) Visit # 3 Payor: BRADEN / Plan: BRADEN ORTIZ / Product Type: Commercial / documented in this encounter Plan of Treatment Not on file documented as of this encounter Visit Diagnoses Diagnosis Left elbow pain- Primary Pain in joint, upper arm Elbow stiffness, left Orthopedic aftercare Unspecified orthopedic aftercare documented in this encounter
--- OUTSIDE RECORDS SUMMARY | 2023-06-15 13:40 | XMS_ITS | Encounter Summary ---
Author Name Unknown Organization [facility] Address [address] [address] Care Team Providers Care Flat Lock Operator Name Role Phone Unavailable Primary Care Provider Unavailabl e Reason for Visit * (Routine) - Incomplete Specialty Diagnoses / Procedures Referred By Contac t Referred To Contact Procedures US Anesthesia Guided Block Benjamin Hayes MD [address] [place] [address] Referral ID Status Reason Start Date Expiration Date V isits Requested Visits Authorized [id number] Incomplete 09/05/2022 12/05/2023 1 1 Encounter Details Date Type Department Care Team Description 09/05/2022 7:10 AM CDT Ancillary Procedure [facility] PACS [address] [place] [address] Social History Tobacco Use Types Packs/Day Years [...] Procedure Name Priority Date/Time Associated Diagnosis Comments US ANESTHESIA GUIDED BLOCK Routine 09/05/2022 7:07 AM CDT documented in this encounter Results * US Anesthesia Guided Block (09/05/2022 7:07 AM CDT) Anatomical Region Laterality Modality Ultrasound Narrative 09/05/2022 7:07 AM CDT If an Anesthesia block was performed please see the Anesthesia encounter for documentation. ??This procedure was performed and interpreted by the performing provider. ?? Benjamin Hayes MD [facility] US documented in this encounter Visit Diagnoses Not on filedocumented in this encounter
--- OUTSIDE RECORDS SUMMARY | 2023-06-15 13:40 | XMS_ITS | Encounter Summary ---
Author Name Unknown Organization [facility] Address [address] [address] Care Team Providers Care Validation Engineer Name Role Phone Unavailable Primary Care Provider Unavailabl e Reason for Visit * Reason Comments Reschedule Appointment Encounter Details Date Type Department Care Team Description 10/14/2022 Telephone [facility] [address] [place], [place] [phone] Talib Ibrahim MD [address] [place] [id number] Reschedule Appointment Social History Tobacco Use Types Packs/Day Years Used Date Smoking Tobacco: Never Smokeless Tobacco: Never Alcohol Use Standard Drinks/Week Comments Yes 0 (1 standard drink = 0.6 oz pur e alcohol) Sex and Gender Information Value Date Recorded Sex Assigned at Not on file Gender Identity Not on file Sexual Orientation Not on file documented as of this encounter Nursing Notes * Elroy Hall - 10/14/2022 8:35 AM CDT Called and LVM for patient to call back and reschedule his 10/20 appointment with Iban Carrera. He can see Iban or Dr. Ibrahim at a different date in a post op or follow up spot. Ok to also take video spot for in person visit with Dr. Ibrahim. Elroy Hall 10/14/2022, 8:36 AM documented in this encounter Plan of Treatment Not on file documented as of this encounter Visit Diagnoses Not on filedocumented in this encounter
--- OUTSIDE RECORDS SUMMARY | 2023-06-15 13:40 | XMS_ITS | Clinical Summary ---
Author Name Unknown Organization [facility] Address [address] [place] [address] Care Team Providers Care Bread Wrapper Name Role Phone Unavailable Primary Care Provider Unavailabl e Source Comments You are receiving this document as you are listed as the primary care provider,follow-up provider, or the patient has been referred to you for consultation.This is in compliance with the Medicare and[facility] EHR Incentive Program,which states Providers who transition their patient to another setting of careor provider of care or refers their patient to another provider of care shouldprovide summary care record for each transition of care or referral. [employer] [employer] Allergies No known active allergies Medications Medication Sig Dispensed Refills Start Date End Date Status sertraline (ZOLOFT) 100 MG tablet Take 1 Tablet (100 mg) by mouth daily. 0 Active lisinopril-hydroCHL OROthiazide (PRINZIDE) 20-12.5 MG tablet Take 1 Tablet by mouth daily. 0 Active gabapentin (NEURONTIN) 300 MG capsule Take 1 Capsule (300 mg) by mouth two times a day. 30 Capsule 3 09/05/2022 09/05/2023 Active methocarbamol (ROBAXIN) 500 MG tablet Take 1 Tablet (500 mg) by mouth three times a day as needed. 60 Tablet 1 09/05/2022 Active Active Problems Problem Noted Date Diagnosed Date Elbow stiffness, left 07/28/2022 Overview: Added automatically from request for surgery [id number] Family History Medical History Relation Name Comments Cancer Mother Relation Name Status Comments Mother Social History Tobacco Use Types Packs/Day Years Used Date Smoking Tobacco: Never Smokeless Tobacco: Never Alcohol Use Standard Drinks/Week Comments Yes 0 (1 standard drink = 0.6 oz pur e alcohol) Sex and Gender Information Value Date Recorded Sex Assigned at Not on file Gender Identity Not on file Sexual Orientation Not on file Last Filed Vital Signs Vital Sign Reading Time Taken Comments Blood Pressure 134/78 09/05/2022 12:30 PM CDT Pulse 88 09/05/2022 12:30 PM CDT Temperature 37.1 ??C (98.7 ??F) 09/05/2022 12:23 PM C DT Respiratory Rate 14 09/05/2022 12:30 PM CDT Oxygen Saturation 97% 09/05/2022 12:30 PM CDT Inhaled Oxygen Concentration - - Weight 109.3 kg (241 lb) 09/05/2022 7:12 AM CDT Height 177.8 cm (5' 10) 09/05/2022 7:12 AM CDT Body Mass Index 34.58 09/05/2022 7:12 AM CDT Plan of Treatment Health Maintenance Due Date Last Done Comments Hep C Screening (Preventive Services) 2000 HepB (1) 2000 COVID-19 Vaccine (#1) 2000 HPV Vaccine (1 - Male 2-dose series) 2011 HIV Screening (Preventive Services) 2016 Adult Preventive Visit 2018 DTaP/Tdap/Td (7 - Tdap) 10/25/2022 10/26/19 13, 03/31/2005, 06/30/2001, Additional history exists Influenza (#1) 2023 06/05/2020, 12/10/2018, 04/22/2019, Additional history exists Zoster/Shingles (1 of 2) 2050 Pneumococcal Aged Out 06/30/2001, 12/16, 2000, Additional history exists No longer eligible based on patient's age to complete this topic IPV (Polio) Completed 03/31/2005, 09/17, 2000, Additional history exists MCV4 Aged Out 10/25/2012 No longer eligi ble based on patient's age to complete this topic HepA Aged Out No longer eligi ble based on patient's age to complete this topic Hib Aged Out No longer eligi ble based on patient's age to complete this topic DIANA VENTURA [id number] Hong Barnes Personal/Family Self [address] [place] [address] DIANA VENTURA [id number]
--- OUTSIDE RECORDS SUMMARY | 2023-06-15 13:40 | XMS_ITS | Encounter Summary ---
Author Name Unknown Organization [facility] Address [address] [address] Care Team Providers Care Insurance Account Representative Name Role Phone Unavailable Primary Care Provider Unavailabl e Reason for Visit * Reason Comments Elbow Problem Encounter Details Date Type Department Care Team Description 10/20/2022 10:30 AM CDT Office Visit [facility] Hand Therapy [address] [place] [address] Lor Mantilla OTR/L [address] [place], [place] [phone] Left elbow pain (Primary Dx); Elbow stiffness, [...] Progress Notes * Lor Mantilla OTR/L - 10/20/2022 10:30 AM CDT Hand Occupational Therapy - Progress Note/Dishcarge Summary Referring Provider: Talib Ibrahim Diagnosis: Left elbow [...] to no difficulty in 8 weeks. Goal MET SUBJECTIVE: Patient is 3 week 4 days post-operative. Pt just saw Andrew. Overall, Left elbow is doing well, witha little soreness by the end of the day. Can complete all self care, and household tasks. Pt starts a new job on Thursday; building [employer]. He has updated MD forms releasing him to work. OBJECTIVE: Pain: Resting pain 0/10. Pain with activity up to 0/10. Description/frequency of pain: sharp, achy.Location: anterior elbow. Edema: Circumferential measurements in cm: Right 09/15/2022 Left 10/20/2022 Elbow Crease 30.5 31.5 Incision/Wound: Closed, raised in areas, healing well, mildly tender in one small location. Pliable. Improving sensation per report, not full, but it's getting there. AROM: 0-140 Post op measurement on op note. Elbow AROM Right 09/15/2022 Left 09/30/2022 Left 10/20/2022 Extension/Flexion 10/140 Post: 5/140 Supination/Pronation 78/82 NT NT Sensation: The patient reports their sensation is intact. Infrequent tingling in the small finger tip. Right 10/20/2022 Left 10/20/2022 Welding Estimator, elbow at 90 degrees 132 lbs 102 lbs Lateral donato pinch 27 lbs 28 lbs TODAY'S TREATMENT INTERVENTION: Therapeutic Exercise CPT 26755 (30 minutes) Exercise: Updated measures. Continue focus on PROM in elbow extension. Exercises reviewed for this. Patient was instructed in, performed, and provided with written handout for elbow/forearm strengthening in all planes, 10 reps, progressing to 30 reps pain/fatigue free before moving up in weight. Start with 3# (tolerated well in clinic). Issued soft stress ball for mercerizing range feeder strenghting, 5-10 minutes max, 2 x daily. Timed Code Treatment Minutes: 30 Total Treatment Minutes: 30 ASSESSMENT: Pt has excellent elbow motion and was advanced to formal strengthening. He will continue an (I) HEPand is discharged from hand therapy. DISCHARGE PLAN: Patient was compliant with attendance and therapy recommendations. Patient will continue to work independently with home program/self management strategies. Attainment of goals: Refer to functional goals listed above. Outcome measures at discharge: OT - Musculoskeletal Elbow QuickDASH (0-100, 0 being best): 2.27 OT - Discharge Total Visits: 4 Reason for discharge: Therapy goals met, or therapist expects patient to meet goals through home program. Primary Therapist: Discharging therapist Therapist Signature: Lor Mantilla OTR/L, MOT, CHT, #[id number]([place]), #5419-26([place]) Visit # 4 Payor: BRADEN / Plan: BRADEN ORTIZ / Product Type: Commercial / documented in this encounter Plan of Treatment Not on file documented as of this encounter Visit Diagnoses Diagnosis Left elbow pain- Primary Pain in joint, upper arm Elbow stiffness, left Orthopedic aftercare Unspecified orthopedic aftercare documented in this encounter
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
--- OUTSIDE RECORDS SUMMARY | 2023-06-15 13:40 | XMS_ITS | Encounter Summary ---
Author Name Unknown Organization [facility] Address [address], [place] [address] Care Team Providers Care Contestant Coordinator Name Role Phone Unavailable Primary Care Provider Unavailabl e Reason for Referral * Procedure/Equipment (Routine) - Incomplete Specialty Diagnoses / Procedures Referred By Contac t Referred To Contact Procedures JO Inlight Camera Images Talib Ibrahim MD [address] [place] [address] Referral ID Status Reason Start Date Expiration Date V isits Requested Visits Authorized [id number] Incomplete 09/05/2022 12/05/2023 1 1 Reason for Visit * Procedure/Equipment (Routine) - Incomplete Specialty Diagnoses / Procedures Referred By Controse hernandez Referred To Contact Procedures JO Inlight Camera Talib Evans MD [address] [place] [address] Referral ID Status Reason Start Date Expiration Date V isits Requested Visits Authorized [id number] Incomplete 09/05/2022 12/05/2023 1 1 Encounter Details Date Type Department Care Team Description 09/05/2022 7:04 AM CDT - 09/05/2022 11:59 PM CDT Hospital Encounter [facility] [address] [place] [address] Discharge Disposition: Home Social History Tobacco Use Types Packs/Day Years Used Date Smoking Tobacco: Never Smokeless Tobacco: Never Alcohol Use Standard Drinks/Week Comments Yes 0 (1 standard drink = 0.6 oz pur e alcohol) Sex and Gender Information Value Date Recorded Sex Assigned at Not on file Gender Identity Not on file Sexual Orientation Not on file documented as of this encounter Medications at Time of Discharge [...] 09/05/2022 10/20/2022 documented as of this encounter Plan of Treatment Scheduled Orders Name Type Priority Associated Diagnoses Orde r Schedule JO Inlight Camera Images RIS Foreign Images Routine 1 Occurrences starting 09/05/2022 until 09/05/2022 documented as of this encounter Visit Diagnoses Not on filedocumented in this encounter
--- OUTSIDE RECORDS SUMMARY | 2023-06-15 13:40 | XMS_ITS | Encounter Summary ---
Author Name Unknown Organization [facility] Address [address] [address] Care Team Providers Care Welt Rougher Name Role Phone Unavailable Primary Care Provider Unavailabl e Reason for Referral * Procedure/Equipment (Routine) - Incomplete Specialty Diagnoses / Procedures Referred By Contac t Referred To Contact Procedures JO Arthroscopy Elbow Rt Talib Ibrahim MD [address] [place] [phone] Referral ID Status Reason Start Date Expiration Date V isits Requested Visits Authorized [id number] Incomplete 09/05/2022 12/05/2023 1 1 Reason for Visit * Procedure/Equipment (Routine) - Incomplete Specialty Diagnoses / Procedures Referred By Contac t Referred To Contact Procedures JO Arthroscopy Elbow Rt Talib Ibrahim MD [address] [place] [address] Referral ID Status Reason Start Date Expiration Date V isits Requested Visits Authorized [id number] Incomplete 09/05/2022 12/05/2023 1 1 Encounter Details Date Type Department Care Team Description 09/05/2022 7:04 AM CDT - 09/05/2022 11:59 PM CDT Hospital Encounter [facility] [address] [place] [address] Discharge Disposition: Home Social History Tobacco [...] Procedure Name Priority Date/Time Associated Diagnosis Comments JO ARTHROSCOPY ELBOW RT Routine 09/05/2022 7:04 AM CDT documented in this encounter Results * JO Arthroscopy Elbow [...]
--- OUTSIDE RECORDS SUMMARY | 2023-06-15 13:40 | XMS_ITS | Encounter Summary ---
Author Name Unknown Organization [facility] Address [address] [address] Care Team Providers Care Senior Front End Developer Name Role Phone Unavailable Primary Care Provider Unavailabl e Reason for Visit * Reason Comments Elbow Problem * Therapies (Routine) - New Request Specialty Diagnoses / Procedures Referred By Eufemia hernandez Referred To Contact Diagnoses Left elbow pain Elbow stiffness, left Talib Ibrahim MD [address] [place] [address] Referral ID Status Reason Start Date Expiration Date V isits Requested Visits Authorized [id number] New Request 07/28/2022 07/28/2023 1 1 Encounter Details Date Type Department Care Team Description 09/15/2022 12:00 PM CDT [facility] [address] [place] [address] Lor Mantilla OTR/John [address] [place] [address] Left elbow pain (Primary Dx); Elbow stiffness, [...] this encounter Progress Notes * Lor Mantilla OTR/John - 09/15/2022 12:00 PM CDT Hand Occupational Therapy - Evaluation Referring Provider: Talib Ibrahim Diagnosis: Left elbow [...] minimal to no difficulty in 2 weeks. The patient will be able to work with tools with minimal to no difficulty in 8 weeks. OT - Musculoskeletal Elbow QuickDASH (0-100, 0 being best): 29.54 SUBJECTIVE: Patient is 1 week 3 days post-operative. Pt arrives after post op visit with Iban. He is relieved that he can discontinue his sling. This is pt's first therapy visit. Pt does not recall being told toschedule therapy sooner. OBJECTIVE: Pain: Resting pain discomfort/10. Pain with activity up to 5-6/10. Description/frequency of pain:sharp, achy. Location: posterior elbow. Edema: Circumferential measurements in cm: Right 09/15/2022 Left 09/15/2022 Elbow Crease 30.5 32.0 Incision/Wound: Closed, raised, healing well, no signs of infection. AROM: Able to make a full fist. Thumb opposition is K10 Bilaterally. Elbow AROM Right 09/15/2022 Left 09/15/2022 Extension/Flexion 1/139 30/129 20/130 Supination/Pronation 78/82 75/82 Strength: Deferred secondary to post operative status. Sensation: The patient reports their sensation is numb over incision and toward olecranon. TODAY'S TREATMENT INTERVENTION: OT Evaluation CPT 02401 (20 minutes untimed) A Moderate Complexity Occupational Therapy Evaluation was completed. Occupational profile/history: expanded review of records and medical history. Assessment: 3-5 performance deficits. Clinical decision making: consideration of several treatment options and patient may have co-morbidities. The patient was educated on the condition, planned therapy intervention, and expectations from treatment. Goals were a collaborative effort between the patient and therapist. Risks, benefits, and alternatives to treatment were explained. Patient or guardian in agreement with care plan. Therapeutic Exercise CPT 59730 (25 minutes) Exercise: Patient was instructed in, performed, and provided with written handout for elbow/forearmAROM, AAROM with dowel for elbow flexion/extension and elbow flexion/extension/and wrist flexor PROM, hold 20-30 seconds, 5 reps followed by 10 reps of AROM/AAROM. Patient was instructed in, performed, and provided with written handout for beginner ulnar nerve glides, 10 reps, 2-4 x daily. Edema Management: Patient has edema sleeve from clinic visit prior to therapy today. Scar Management: The patient was instructed in and issued written information on scar mobilization with recommendations to perform 3 times per day for 3-5 minutes as soon as incision is healed. The patient was issueda scar pad to use 8 hours out of 24 hours a day. Written instructions were issued regarding scar pad wear, care and precautions. Timed Code Treatment Minutes: 25 Total Treatment Minutes: 45 ASSESSMENT: Symptoms are consistent with referring diagnosis. Functional limitations are due to: pain, edema, decreased ROM, decreased strength, and post-operative healing. Rehab prognosis is good to achieve stated goals. Mood, orientation, and behavior were appropriate. No barriers to learning noted today. PLAN: The patient will return for additional therapy. Discharge is planned as functional outcomes are achieved, progress has reached a plateau or adequate progress is made such that the patient is able to self-manage with their home program. Patient was provided with the clinic number and instructed to call with any questions or concerns. Next Treatment Session: AROM/AAROM/PROM Visit frequency/duration: 1x/week for 8 weeks for a total of 8 visits. Treatment Plan: AROM, AAROM, PROM, strengthening, edema control, scar management, modalities, manual therapy, patient education and training. Therapist Signature: Lor Mantilla OTR/John, MOT, CHT, #[id number]([place]), #[id number]([place]) Visit # 1 Payor: BRADEN / Plan: BRADEN [place] / Product Type: Commercial / documented in this encounter Plan of Treatment Scheduled Referrals Name Type Priority Associated Diagnoses Orde r Schedule Myeroff Elbow Release (Arthroscopic or Open) Referral Routine Left elbow pain Elbow stiffness, left Ordered: 07/28/2022 documented as of this encounter Visit Diagnoses Diagnosis Left elbow pain- Primary Pain in joint, upper arm Elbow stiffness, left Orthopedic aftercare Unspecified orthopedic aftercare documented in this encounter
--- OUTSIDE RECORDS SUMMARY | 2023-06-15 13:41 | XMS_ITS | Encounter Summary ---
Author Name Unknown Organization [facility] Address [address] [address] Care Team Providers Care Woodwinds Teacher Name Role Phone Unavailable Primary Care Provider Unavailabl e Reason for Referral * (Routine) - Incomplete Specialty Diagnoses / Procedures Referred By Contac t Referred To Contact Procedures US Anesthesia Guided Block Benjamin Hayes MD [address] [place] [address] Referral ID Status Reason Start Date Expiration Date V isits Requested Visits Authorized [id number] Incomplete 09/05/2022 12/05/2023 1 1 Reason for Visit * Auth/Cert (Routine) Specialty Diagnoses / Procedures Referred By Contac t Referred To Contact Diagnoses Elbow stiffness, left Procedures ARTHROSCOPic ELBOW DEBRIDEMENT OCD LESION, OSTEOCAPSULAR RELEASE, OPEN ULNAR NERVE DECOMPRESSION POSSIBLE TRANSPOSITION, MANIPULATION UNDER ANESTHESIA Referral ID Status Reason Start Date Expiration Date Visits Re quested Visits Authorized [id number] 1 1 Encounter Details Date Type Department Care Team Description 09/05/2022 7:02 AM CDT - 09/05/2022 11:59 PM CDT Hospital Encounter [facility] [address] [place] [address] Talib Ibrahim MD [address] [place] [address] Discharge Disposition: Home Social History Tobacco Use [...] DVT (Deep Vein Thrombosis): Prevention: General Info (Kinyarwanda) documented in this encounter Medications at Time [...] Ibrahim MD - 09/05/2022 8:05 PM CDT [facility] Orthopedic Surgery Operative Note PATIENT NAME: Hong Barnes DATE OF : 2000 DATE OF SURGERY: 09/05/2022 PRIMARY SURGEON: Talib Ibrahim MD ASSISTANTS: MAURA Smith BINDING NICKER: There were no residents available to assist on this case. Andrew was required as a assistant manager quality management to assist with positioning of the patient, prepping and draping of the patient, positioning of the extremity throughout the procedure allowing for retraction and implantation of the components. The therapy assistant also assisted with closure of the wound, [...] was carefully released from the ligament of [place] through Clifton's ligament and then releasing both [...] correct. POSTOPERATIVE PLAN: Myeroff elbow release protocol. Myeroff elbow release OT protocol Same day and [...] F/U: 2 and 6 weeks with Iban Carrera, 12 weeks Talib Ibrahim MD. No X-rays needed. Talib Ibrahim MD Attending Orthopaedic Surgeon [facility] * Sandip Alvarado PA-C - 09/05/2022 11:18 AM CDT [facility] Brief Operative Progress Note Surgery Date: 09/05/2022 [...] The procedure was medically necessary for an therapy assistant because Dr. Ibrahim needed the operative exposure [...] the performing provider. ?? Benjamin Hayes MD [facility] documented in this encounter Visit Diagnoses Diagnosis Elbow stiffness, left- Primary documented in this encounter Admitting Diagnoses Diagnosis [...] CDT 1,000 mg bupivacaine-epinephrine PF (SENSORCAINE) 0.5% -1:399914 injection ONCE PRN, Starting on Thu09/05/22 at [...] (SUBLIMAZE) injection 25-50 mcg 25-50 mcg, Intravenous, [id number], Pain, Starting on Thu09/05/22 at 1049, Until [...] For 1 dose, Adminster X1 pre-op., Pre-op 07 (Given - Provid er: Davida Brooks RN) ceFAZolin (ANCEF) 2 g in sodium chloride 0.9 % 50 mL IVPB (COMPLETED) 2 g, Intravenous, Administer over 30 Minutes, ONCE (NON-SCHEDULED), Starting on Thu09/05/22 at 0707, For 1 dose, For patient weight less than or equal to 119 kg PRE-OP, Pre-op 0842 (Started - Prov ider: Demetrius Menendez APRN, SPRINKLER INSTALLER) gabapentin (NEURONTIN) capsule 600 mg 600 mg, [...] (Given - Provid er: Ty Bennett APRN, SPRINKLER INSTALLER) Continuous Medication Order 09/03/2022 09/04/2022 09/05/2022 lactated ringers infusion Intravenous, at 30 mL/hr, CONTINUOUS, Starting on Thu09/05/22 at 0730, Pre-op 0842 (Started - Prov ider: Demetrius Menendez APRN, SPRINKLER INSTALLER)0939 (Anesthesia Fluid - Provider: Ty Bennett APRN, SPRINKLER INSTALLER)1047 (Started - Provider: Ty Bennett APRN, SPRINKLER INSTALLER)1110 (Anesthesia Fluid - Provider: Ty Bennett APRN, SPRINKLER INSTALLER) lactated ringers infusion 30 mL/hr, Intravenous, CONTINUOUS, Starting on Thu09/05/22 at 0730, Pre-op 0730 (Due) PRN Medication Order 09/03/2022 09/04/2022 09/05/2022 bupivacaine-epinephrine PF (SENSORCAINE) 0.5% -1:502299 injection ONCE PRN, Starting on Thu09/05/22 at [...] (SUBLIMAZE) injection 25-50 mcg 25-50 mcg, Intravenous, [id number], Pain, Starting on Thu09/05/22 at 1049, Until [...] at 1137, Until Thu09/08/22 at 0301, PACU/Recovery 1138 (Given - Provid [...]
--- OUTSIDE RECORDS SUMMARY | 2023-06-15 13:41 | XMS_ITS | Encounter Summary ---
Author Name Unknown Organization [facility] Address [address], [place] [address] Care Team Providers Care Polisher Aluminum Name Role Phone Unavailable Primary Care Provider Unavailabl e Reason for Visit * Procedure/Equipment (Routine) - Incomplete Specialty Diagnoses / Procedures Referred By Contac t Referred To Contact Diagnoses Left elbow pain Elbow stiffness, left Procedures XR Eye Foreign Body Talib Ibrahim MD [address] [place] [address] Referral ID Status Reason Start Date Expiration Date V isits Requested Visits Authorized [id number] Incomplete 07/29/2022 10/28/2023 1 1 Encounter Details Date Type Department Care Team Description 08/04/2022 9:40 AM CDT Ancillary Procedure [facility] [address] [place] [address] Talib Ibrahim MD [address] [place] [address] Left elbow pain; Elbow stiffness, left Social History Tobacco Use [...] Procedure Name Priority Date/Time Associated Diagnosis Comments XR EYE FOREIGN BODY Routine 08/04/2022 9 :39 AM CDT Left elbow pain Elbow stiffness, left documented in this encounter Results * XR Eye Foreign Body (08/04/2022 9:39 AM CDT) Anatomical Region Laterality Modality Head Digital Radiogra phy 08/04/2022 9:39 AM CDT Narrative 08/04/2022 9:47 AM CDT EXAM: XR EYE FOREIGN BODY LOCATION: [facility] DATE/TIME: 08/04/2022 9:39 AM INDICATION: Elbow pain, chronic, bone abnormality suspected, nondiagnostic xray; metal injury to left eye. please evaluate for metal prior to mri COMPARISON: None. IMPRESSION: Negative orbits. Both eyes are negative for metallic foreign bodies. Procedure Note Shine Wylie MD - 08/04/2022 EXAM: XR EYE FOREIGN BODY LOCATION: [facility] DATE/TIME: 08/04/2022 9:39 AM INDICATION: Elbow pain, chronic, bone abnormality suspected, nondiagnosticxray; metal injury to left eye. please evaluate for metal prior to mri COMPARISON: None. IMPRESSION: Negative orbits. Both eyes are negative for metallic foreignbodies. Talib Ibrahim MD RAD GD documented in this encounter Visit Diagnoses Diagnosis Left elbow pain Pain in joint, upper arm Elbow stiffness, left documented in this encounter
--- OUTSIDE RECORDS SUMMARY | 2023-06-15 13:41 | XMS_ITS | Encounter Summary ---
Author Name Unknown Organization [facility] Address [address] [address] Care Team Providers Care Rehabilitation Services Aide Name Role Phone Unavailable Primary Care Provider Unavailabl e Reason for Visit * Procedure/Equipment (Routine) - Closed Specialty Diagnoses / Procedures Referred By Contac t Referred To Contact Diagnoses Left elbow pain Elbow stiffness, left Procedures MR Elbow Lt WO IV Cont Talib Ibrahim MD [address] [place] [address] Referral ID Status Reason Start Date Expiration Date Visits Re quested Visits Authorized [id number] Closed 07/28/2022 10/27/2023 1 1 Encounter Details Date Type Department Care Team Description 08/04/2022 9:50 AM CDT Ancillary Procedure [facility] Rad[facility] MRI [address] [place] [address] Talib Ibrahim MD [address] [place], [place] [address] [address] Left elbow pain; Elbow stiffness, left [...] Procedure Name Priority Date/Time Associated Diagnosis Comments MR ELBOW LT WO IV CONT Routine 08/04/2022 10:23 AM CDT Left elbow pain Elbow stiffness, left documented in this encounter Results * MR Elbow Lt WO IV Cont (08/04/2022 10:23 AM CDT) Anatomical Region Laterality Modality Upper Extremity, Arm, Elbow, Forearm, Skeletal, MSK Left Magnetic Resonance 08/04/2022 10:2 3 AM CDT Narrative 08/04/2022 11:56 AM CDT EXAM: MR ELBOW LT WO IV CONT LOCATION: [facility] DATE/TIME: 08/04/2022 10:23 AM INDICATION: Chronic elbow pain, bone abnormality suspected; nondiagnostic x-ray. COMPARISON: None. TECHNIQUE: Unenhanced. FINDINGS: TENDONS: -Distal biceps: The biceps tendon is intact. There is mild brachialis tendinopathy without tearing. -Common extensor origin: No tendinopathy or tear. -Common flexor tendon origin: No tendinopathy or tear. -Distal triceps: Normal. LIGAMENTS: -Ulnar collateral ligament: Intact. -Lateral collateral ligament complex: Lateral ulnar collateral ligament and radial collateral ligament are intact. ELBOW JOINT: -Ulnotrochlear articulation: There is slight cartilaginous edema and subchondral edema along the extreme medial aspect of the trochlea on series 6, image 13. 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 No definite free fragment or loosening is identified, but follow-up examination is recommended. -Joint space: Small effusion with a chronic appearing loose body seen anterior to the distal humerus. BONES: -No fracture or bone contusion. SOFT TISSUES: -No muscle atrophy or edema. Cubital tunnel is normal and visualized ulnar nerve is intact. No bursitis. IMPRESSION: 1. 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 There is juan cortical irregularity, but no definite loosening. Follow up examination is recommended, however. 2. ??Small effusion with a well-corticated and chronic loose body seen anterior to the distal humerus. 3. ??Slight cartilage edema and subchondral edema along the extreme medial margin of the trochlea. 4. ??No evidence for acute fracture. 5. ??Mild brachialis tendinopathy without tearing. 6. ??No additional tendinous or ligamentous pathology. Procedure Note Jesse Garcia MD - 08/04/2022 EXAM: ELBOW LT WO IV CONT LOCATION: [facility] DATE/TIME: 08/04/2022 10:23 AM INDICATION: Chronic elbow pain, bone abnormality suspected; nondiagnosticx-ray. COMPARISON: None. TECHNIQUE: Unenhanced. FINDINGS: TENDONS: -Distal biceps: The biceps tendon is intact. There is mild brachialistendinopathy without tearing. -Common extensor origin: No tendinopathy or tear. -Common flexor tendon origin: No tendinopathy or tear. -Distal triceps: Normal. LIGAMENTS: -Ulnar collateral ligament: Intact. -Lateral collateral ligament complex: Lateral ulnar collateral ligamentand radial collateral ligament are intact. ELBOW JOINT: -Ulnotrochlear articulation: There is slight cartilaginous edema andsubchondral edema along the extreme medial aspect of the trochlea onseries 6, image 13. -Radiocapitellar articulation: Osteochondritis dissecans involving theanterior aspect of the capitellum with juan fragmentation of thearticular margin and cortical step-off. No definite free fragment orloosening is identified, but follow-up examination is recommended. -Joint space: Small effusion with a chronic appearing loose body seenanterior to the distal humerus. BONES: -No fracture or bone contusion. SOFT TISSUES: -No muscle atrophy or edema. Cubital tunnel is normal and visualized ulnarnerve is intact. No bursitis. IMPRESSION: 1. 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 There is juan corticalirregularity, but no definite loosening. Follow up examination isrecommended, however. 2. Small effusion with a well-corticated and chronic loose body seenanterior to the distal humerus. 3. Slight cartilage edema and subchondral edema along the extreme medialmargin of the trochlea. 4. No evidence for acute fracture. 5. Mild brachialis tendinopathy without tearing. 6. No additional tendinous or ligamentous pathology. Talib Ibrahim MD RAD MRI documented in this encounter Visit Diagnoses Diagnosis Left elbow pain Pain in joint, upper arm Elbow stiffness, left documented in this encounter
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
--- OUTSIDE RECORDS SUMMARY | 2023-06-15 13:41 | XMS_ITS | Encounter Summary ---
Author Name Unknown Organization [facility] Address [address] [address] Care Team Providers Care Paint Maker Name Role Phone Unavailable Primary Care Provider Unavailabl e Reason for Visit * Procedure/Equipment (Routine) - Incomplete Specialty Diagnoses / Procedures Referred By Contac t Referred To Contact Diagnoses Left elbow pain Procedures XR Elbow Lt 2 Views Talib Ibrahim MD [address] [place] [address] Referral ID Status Reason Start Date Expiration Date V isits Requested Visits Authorized [id number] Incomplete 07/28/2022 10/27/2023 1 1 Encounter Details Date Type Department Care Team Description 07/28/2022 9:45 AM CDT Ancillary Procedure [facility] Radiology [address] [place] [address] Talib Ibrahim MD [address] [place] [address] Left elbow pain Social History Tobacco Use Types Packs/Day Years [...] Name Priority Date/Time Associated Diagnosis Comments XR ELBOW LT 2 VIEWS Routine 07/28/2022 9 :55 AM CDT Left elbow pain documented in this encounter Results * XR Elbow Lt 2 Views (07/28/2022 9:55 AM CDT) Anatomical Region Laterality Modality Upper Extremity, Elbow, Arm Digi maribel Radiography 07/28/2022 9:55 AM CDT Narrative 07/28/2022 10:26 AM CDT EXAM: XR ELBOW LT 2 VIEWS LOCATION: [facility] DATE/TIME: 07/28/2022 9:55 AM INDICATION: Ocd COMPARISON: MRI from 08/05/2018 IMPRESSION: There is a 1 cm subchondral area of irregular lucency in the capitellum consistent with an osteochondral lesion. Consider MRI to evaluate stability. No acute fracture or malalignment. No significant degenerative changes. No elbow joint effusion. Procedure Note Ty Ferrera MD - 07/28/2022 EXAM: XR ELBOW LT 2 VIEWS LOCATION: [facility] DATE/TIME: 07/28/2022 9:55 AM INDICATION: Ocd COMPARISON: [...] elbow pain Pain in joint, upper arm documented in this encounter
--- OUTSIDE RECORDS SUMMARY | 2023-06-15 13:41 | XMS_ITS | Encounter Summary ---
Author Name Unknown Organization [facility] Address [address] [place] [address] Care Team Providers Care Mainstreaming Facilitator Name Role Phone Unavailable Primary Care Provider Unavailabl e Encounter Details Date Type Department Care Team Description 07/15/2022 Telephone [facility] [address] [place], [place] [id number] Talib Mckee MD [address] [facility] [place] [id number] Social History Tobacco Use Types Packs/Day Years Used Date Smoking Tobacco: Never Smokeless Tobacco: Never Sex and Gender Information Value Date Recorded Sex Assigned at Not on file Gender Identity Not on file Sexual Orientation Not on file documented as of this encounter Nursing Notes * Davina Holly ATC - 07/15/2022 9:54 AM CST Called patient as he was scheduled with Dr. Mckee on 07/15/22 for the elbow. Rescheduled patientwith Dr. Ibrahim on 07/28/22. Davina Holly ATC 07/15/2022, 9:55 AM INE DISPATCHER documented in this encounter Plan of Treatment Not on file documented as of this encounter Visit Diagnoses Not on filedocumented in this encounter
--- OUTSIDE RECORDS SUMMARY | 2023-06-15 13:41 | XMS_ITS | Encounter Summary ---
Author Name Unknown Organization [facility] Address [address], [place] [address] Care Team Providers Care Organ Teacher Name Role Phone Unavailable Primary Care Provider Unavailabl e Encounter Details Date Type Department Care Team Description 09/05/2022 8:42 AM CDT Anesthesia Event [facility] [place] [address] [place] [address] Diana Mcgraw MD [address] [place] [address] Benjamin Hayes MD [address] [place] [address] Anesthesia Record Procedure Summary Procedure Name Responsible Anesthesiologist Anesthesia Start Time Anesthesia Stop Time ARTHROSCOPIC ELBOW DEBRIDEMENT Osteochondritis Dissecans LESION, OSTEOCAPSULAR RELEASE, OPEN ULNAR NERVE DECOMPRESSION, MANIPULATION UNDER ANESTHESIA (Left: Elbow) Diana Mcgraw MD 09/05/22 0842 09/05/22 1114 Events Date Time Event Comment 09/05/2022 0730 IV plmt Meri Nava APRN, CRNA 0735 IV Plmt Comp IV was placed i n Preop area by Meri Nava APRN, CRNA for administration of IV fluids, IV antibiotics, and IV pre-op sedation. Patient was continuously monitored by Meri Nava APRN, CRNA during the placement. 0841 0842 An Start 0846 An Start Data 0848 MD/DO Present 0852 An Induction 0855 An Intubation 0959 MD/DO Present 1041 An Tourn Deflated 1050 An Reversal 1053 An Local Anesthetic By Surge on 1101 An Ett Suctioned 1101 An Emergence 1105 An Extubation Purposeful mov ement with spontaneous respirations and adequate air exchange. Suctioned and ETT removed. Transferred with oxygen to recovery. 1106 An Oxygen Mask Spontaneous r espirations with adequate air exchange. 1109 an stop data 1110 MD/DO Present 1114 Care Handoff Note I discusse d with the receiving nurse and we: 1) Identified the patient, donato family member(s) or patient surrogate 2) Identified the responsible practitioner 3) Reviewed the pertinent medical history 4) Discussed the surgical/procedure course 5) Reviewed intra-op anesthesia management and issues during anesthesia 6) Set expectations for the post-procedure period 7) Allowed opportunity for questions and acknowledgement of understanding of report Electronically signed by Ty Bennett APRN, ALEJANDRO 1114 An Stop Care transferre d. Meds Name Total midazolam 2 mg/2 mL injection (aka VERSE D) 2 mg FENTanyl injection (aka SUBLIMAZE) 300 m cg lidocaine 2% PF injection aka (XYLOCAINE ) 80 mg propofol 10 mg/mL for procedural sedatio n (aka diPRIvan) 1,910.55 mg rocuronium injection (aka ZEMURON) 50 mg glycopyrrolate injection (aka ROBINUL) 0 .8 mg ondansetron injection (aka ZOFRAN) 4 mg dexamethasone 4 mg/mL injection (aka DEC ADRON) 4 mg ketorolac 15 mg/mL injection (TORADOL) 1 5 mg neostigmine 5 mg/5mL injection (aka PROS TIGMIN) 3 mg ceFAZolin (ANCEF) 2 g in sodium chloride 0.9 % 50 mL IVPB 2 g tranexamic acid (CYKLOKAPRON ) 1000 mg in sodium chloride 0.9% (10 mg/mL) 100 mL IVPB premix 1,000 mg lactated ringers infusion 1,100 mL * Agents Name O2 N2O * Blood No blood administrations on file. Lines, Drains, and Airways Type Details Placement Removal Peripheral IV Placement Date: 09/05/22; Pre-existing: No; Inserted by?: CERTIFIED LEGAL SECRETARY SPECIALIST; Size (Gauge): 20 G; Orientation: Right; Site Prep: Alcohol; Local Anesthetic: Injectable, 0.5 ML intradermal, 1.0 ML intradermal; Insertion attempts: 1; Blood draw with insertion?: no; Patient Tolerance: Tolerated well; Removal Date: 09/05/22; Removal Time: 1230; Removal Reason: Patient discharged; Catheter Tip: Intact 09/05/22 0000 by Meri Nava APRN, CERTIFIED LEGAL SECRETARY SPECIALIST 09/05/22 1230 by Norah Bauman RN ETT Placement Date: 09/05/22; Placement Time: 0855; Placed By: CERTIFIED LEGAL SECRETARY SPECIALIST; Induction Type: Pre-O2, IV; Masking: Easy; ETT Type: ETT; Orientation: Center; Size (mm): 8.0; Depth Secured (cm): 24 cm (rt central incisor BH); Cuffed: Cuffed; Cuff Volume: (to seal); Intubation Method: DL; Cormack_Lehane Glottic Grade: Grade 1; Glottic View: Cords Open; Blade: Bennett; Blade Size: 2; Insertion attempts: 1; Difficulty: Atraumatic; Adjunct Equipment: Stylet; Placement Verification: BBSE, Positive EtCO2; Teeth and Lips Unchanged: Unchanged; Removal Date: 09/05/22; Removal Time: 1105; Transferred with Oxygen: Yes 09/05/22 0855 by Demetrius Menendez APRN, CERTIFIED LEGAL SECRETARY SPECIALIST 09/05/22 1105 by Ty Bennett APRN, CERTIFIED LEGAL SECRETARY SPECIALIST Incision/Surgical Site 09/05/22; 0940; #1; No; Elbow; Anterior, Left; 09/22/22; 0101 09/05/22 0940 by Odessa Garrett RN 09/22/22 0101 by Enedina, Discontinue documented in this encounter Social History Tobacco Use Types Packs/Day Years Used Date Smoking Tobacco: Never Smokeless Tobacco: Never Alcohol Use Standard Drinks/Week Comments Yes 0 (1 standard drink = 0.6 oz pur e alcohol) Sex and Gender Information Value Date Recorded Sex Assigned at Not on file Gender Identity Not on file Sexual Orientation Not on file documented as of this encounter Miscellaneous Notes * Anesthesia Postprocedure Evaluation - Diana Mcgraw MD - 09/05/2022 12:49 PM CDT [facility] [place] Anesthesia Post-op Note Patient: Hong Barnes Post-Op Diagnosis: Procedure Performed: Procedure(s): Left - ARTHROSCOPic ELBOW DEBRIDEMENT OCD LESION, OSTEOCAPSULAR RELEASE, OPEN ULNAR NERVE DECOMPRESSION, MANIPULATION UNDER ANESTHESIA - Wound Class: 1 CLEAN Anesthesia Type: General Post-op vital signs: Vitals Value Taken Time BP 134/78 09/05/22 1230 Temp 37.1 ??C (98.7 ??F) 09/05/22 1223 Pulse 88 09/05/22 1230 Resp 14 09/05/22 1230 SpO2 97 % 09/05/22 1230 Pain Score: Preferred Pain Scale: number (Numeric Rating Pain Scale) (0-10) Pain Rating: Rest: 5 (0-10) Pain Rating: Activity: 9 Post-op assessment: Patient location: Phase 2 Airway Status: Patent Cardiovascular function: Satisfactory Hydration status: Satisfactory PONV: None Level of Consciousness: Awake Fully Participates Postop Assessment: Patient tolerated procedure well. Electronically signed by: Diana Mcgraw MD 09/05/2022 12:49 PM * Anesthesia Preprocedure Evaluation - Diana Mcgraw MD - 09/05/2022 7:55 AM CDT [facility] [place] Anesthesia Pre-op Evaluation Procedure: ARTHROSCOPic ELBOW DEBRIDEMENT OCD LESION, OSTEOCAPSULAR RELEASE, OPEN ULNAR NERVE DECOMPRESSION POSSIBLE TRANSPOSITION, MANIPULATION UNDER ANESTHESIA, Left HPI: 22 y.o. old male with Last Fluid Intake Time: 544 Last Fluid Intake Date: 09/05/22 Last Food Intake Date: 09/05/22 Last Food Intake Time: 29 No Known Allergies Past Medical History: Diagnosis Date Anxiety (HRC) Depression Essential (primary) hypertension (HRC) Patient Active Problem List Diagnosis Elbow stiffness, left History reviewed. No pertinent surgical history. Outpatient Medications as of 09/05/2022 Medication Sig lisinopril-hydroCHLOROthiazide (PRINZIDE) 20-12.5 MG tablet Take 1 Tablet by mouth daily. sertraline (ZOLOFT) 100 MG tablet Take 1 Tablet (100 mg) by mouth daily. Facility-Administered Medications as of 09/05/2022 Medication Dose Route Frequency [COMPLETED] acetaminophen (TYLENOL) tablet 1,000 mg 1,000 mg Oral Once (Non-Scheduled) ceFAZolin (ANCEF) 2 g in sodium chloride 0.9 % 50 mL IVPB 2 g Intravenous Once (Non-Scheduled) fentaNYL (SUBLIMAZE) injection 25-50 mcg 25-50 mcg Intravenous PRN with procedures gabapentin (NEURONTIN) capsule 600 mg 600 mg Oral Once (Non-Scheduled) lactated ringers infusion Intravenous Continuous lactated ringers infusion 30 mL/hr Intravenous Continuous midazolam (VERSED) injection 1-2 mg 1-2 mg Intravenous PRN with procedures tranexamic acid (CYKLOKAPRON) 1000 mg in sodium chloride 0.9% (10 mg/mL) 100 mL IVPB premix 1,000 mg Intravenous Once Followed by tranexamic acid (CYKLOKAPRON) 1000 mg in sodium chloride 0.9% (10 mg/mL) 100 mL IVPB premix 1,000 mg Intravenous Once Labs: No results found for: SODIUM, K, CHLORIDE, CO2, BUN, CREATININE, GLUCOSE No results found for: WBC, HGB, HCT, PLTS No results found for: INR Blood Bank: No results found for: ABO, ABSCR EKG: No results found for this or any previous visit. Physical Exam: BP 129/69 Pulse 87 Temp 36.5 ??C (97.7 ??F) Resp 16 Ht 5' 10 (1.778 m) Wt 109.3 kg (241 lb) SpO2 98% BMI 34.58 kg/m?? Assessment/Plan: Review of Systems NPO Status: Acceptable. Patient does not have GERD. Patient is not a current smoker. The patient reports alcohol use. Patient denies any recent URI. History of PONV: No. History of motion sickness: No. Patient denies any personal or family history of anesthesia complications. Exam Mental Status: Alert and oriented. Mallampati score: II (Two). Mouth opening: Normal Thyromental Distance: > 3 finger breadths and Normal Neck Extension: Full Neck Circumference > 40 cm?: No Current airway assessment:Normal Dentition: Age appropriate. Cardiac Exam: Regular rate and rhythm. Respiratory Exam: Breath sounds clear to auscultation Assessment ASA Status: 2 . Plan Anesthesia type: General and ETT Induction: Intravenous and Propofol Maintenance: TIVA Postoperative pain management: Plan for postoperative opioid use PONV Risk Score Adult: 2 PONV Prophylaxis (planned): Ondansetron and Decadron Anesthetic plan, risks, benefits and alternatives discussed with: Patient. Patient snores, with apnea H&P Reviewed and Patient examined, no change observed IV access Antibiotics per surgery Electronically signed by: Diana Mcgraw MD 09/05/2022 7:55 AM documented in this encounter Plan of Treatment Not on file documented as of this encounter Visit Diagnoses Not on filedocumented in this encounter Administered Medications Inactive Administered Medications - up to 3 most recent administrations Medication Order MAR Action Action Date Dose Rate Site ceFAZolin (ANCEF) 2 g in sodium chloride 0.9 % 50 mL IVPB 2 g, Intravenous, Administer over 30 Minutes, ONCE (NON-SCHEDULED), Starting on Thu09/05/22 at 0707, For 1 dose, For patient weight less than or equal to 119 kg PRE-OP, Pre-op Started 09/05/2022 8:42 AM CDT 2 g dexamethasone (DECADRON) injection Intravenous, Starting on Thu09/05/22 at 0913, Until Thu09/05/22 at 1114 Given 09/05/2022 9:13 AM CDT 4 mg fentaNYL (SUBLIMAZE) injection Intravenous, Starting on Thu09/05/22 at 0852, Until Thu09/05/22 at 1114 Given 09/05/2022 10:23 AM CDT 50 mcg Given 09/05/2022 10:01 AM CDT 50 mcg Given 09/05/2022 9:37 AM CDT 50 mcg glycopyrrolate (ROBINUL) injection Intravenous, Starting on Thu09/05/22 at 0913, Until Thu09/05/22 at 1114 Given 09/05/2022 10:50 AM CDT 0.6 mg Given 09/05/2022 9:13 AM CDT 0.2 mg ketorolac (TORADOL) injection Intravenous, Starting on Thu09/05/22 at 1042, Until Thu09/05/22 at 1114 Given 09/05/2022 10:42 AM CDT 15 mg lactated ringers infusion Intravenous, at 30 mL/hr, CONTINUOUS, Starting on Thu09/05/22 at 0730, Pre-op Started 09/05/2022 10:47 AM CDT Started 09/05/2022 8:42 AM CDT lidocaine PF (XYLOCAINE) 2 % injection Intravenous, Starting on Thu09/05/22 at 0852, Until Thu09/05/22 at 1114 Given 09/05/2022 8:52 AM CDT 80 mg midazolam (VERSED) injection Intravenous, Starting on Thu09/05/22 at 0842, Until Thu09/05/22 at 1114 Given 09/05/2022 8:42 AM CDT 2 mg neostigmine (PROSTIGMINE) injection Intravenous, Starting on Thu09/05/22 at 1050, Until Thu09/05/22 at 1114 Given 09/05/2022 10:50 AM CDT 3 mg ondansetron (ZOFRAN) injection Intravenous, Starting on Thu09/05/22 at 1021, Until Thu09/05/22 at 1114 Given 09/05/2022 10:21 AM CDT 4 mg propofol (DIPRIVAN) 10 mg/mL injection Intravenous, Starting on Thu09/05/22 at 0852, Until Thu09/05/22 at 1114 Rate/Dose Change 09/05/2022 10:50 AM CDT 50 mcg/kg/min 32.79 mL/hr Rate/Dose Change 09/05/2022 10:41 AM CDT 100 mcg/kg/min 65 .58 mL/hr Rate/Dose Change 09/05/2022 9:51 AM CDT 125 mcg/kg/min 81. 975 mL/hr rocuronium (ZEMURON) injection Intravenous, Starting on Thu09/05/22 at 0852, Until Thu09/05/22 at 1114 Given 09/05/2022 8:52 AM CDT 50 mg tranexamic acid (CYKLOKAPRON) 1000 mg in sodium chloride 0.9% (10 mg/mL) 100 mL IVPB premix 1,000 mg, Intravenous, ONCE, On Thu09/05/22 at 0730, For 1 dose, Administer once at incision and once at start of closure., Pre-op Given 09/05/2022 9:39 AM CDT 1,000 mg documented in this encounter
== END 2023-06-15 13:45 | disposition home or self-care (01) ==
PROVIDERS: Emergency Provider Family Medicine; PCP Family Medicine
DX: K21.9 Gastro-esophageal reflux disease without esophagitis (principal); K29.70 Gastritis, unspecified, without bleeding
CPT/HCPCS: 99283

== ENCOUNTER 2023-06-23 10:06 | Emergency (ER) | payer BC, SELFPAY ==
[2023-06-23 10:59] VITALS: BP 138/82; PULSE 87; RESP 20; TEMP 36.7; O2SAT 97; BMI 32.8
--- OUTSIDE RECORDS SUMMARY | 2023-06-23 13:07 | XMS_ITS | Encounter Summary ---
Author Name Unknown Organization [facility] Address [address], [place] [address] Care Team Providers Care Planning Specialist Name Role Phone Unavailable Primary Care Provider Unavailabl e Reason for Visit * Reason Comments Reschedule Appointment Encounter Details Date Type Department Care Team Description 10/14/2022 Telephone [facility] [address] [place], [place] [phone] Talib Ibrahim MD [address] [place] [phone] Reschedule Appointment Social History Tobacco Use Types [...]
--- OUTSIDE RECORDS SUMMARY | 2023-06-23 13:07 | XMS_ITS | Encounter Summary ---
Author Name Unknown Organization [facility] Address [address], [place] [address] Care Team Providers Care Visual Basic .Net Developer Name Role Phone Unavailable Primary Care Provider Unavailabl e Reason for Visit * Reason Comments Post-Op Check Encounter Details Date Type Department Care Team Description 09/15/2022 11:00 AM CDT Office Visit [facility] [address] [place] [address] Iban Carrera OA Left elbow [...] were not included. Thank you for choosing [facility] for your health care visit today. Please read the contents below for important information regarding today's appointment. Notizza.Bonuu[employer] Loyalty Diagnosis: Left elbow capitellar painful Osteochondritis Dissecans [...] all medication refills: Request a refill using BidKindt or contact your pharmacy. MRI Scheduling: To schedule an MRI at [facility] please call [phone]. For Counts include 234 beds at the [facility] please call [phone]. For [facility] please call [phone]. [facility] Workers' Compensation [address] [place] [address] (Phone) What is Know Your Cost? Know Your Cost is a service for patients and patient/members to call and receive personalized cost information and estimates across our care group. The phone number is (COST) and is open Thursday - Thursday from 8 a.m. to [address] Talib Ibrahim MD Orthopedic Surgery - Shoulder and Elbow Specialist [facility] Mondays & . SEE Roy Orthopedic Surgery - Shoulder and Elbow MAURA Smith Orthopedic Surgery - Shoulder and Elbow Non-operative Specialist Paperwork Requests/Questions Regarding Surgery Scheduling: Radio Journalist: Kelly Ortiz Please Review Dr. Ibrahim at: [email or web address] Loyalty/reviews [email or web address] documented in this encounter Progress Notes [...] 09/15/2022 Talib Ibrahim MD Attending Orthopaedic Surgeon [facility] Shoulder and Elbow Service documented in this encounter Plan of Treatment Not on file documented as of this encounter Visit Diagnoses Diagnosis Left elbow pain- Primary Pain in joint, upper arm Elbow stiffness, left documented in this encounter
--- OUTSIDE RECORDS SUMMARY | 2023-06-23 13:07 | XMS_ITS | Encounter Summary ---
Author Name Unknown Organization [facility] Address [address], [place] [address] Care Team Providers Care Curing Oven Attendant Name Role Phone Unavailable Primary Care Provider Unavailabl e Reason for Visit * Reason Comments Elbow Problem Encounter Details Date Type Department Care Team Description 10/20/2022 10:30 AM CDT Office Visit [facility] Hand Therapy [address] [place] [address] Lor Mantilla OTR/L [address] [place], [place] [phone] Left elbow pain (Primary Dx); Elbow stiffness, [...] starts a new job on Thursday; building [employer]. He has updated MD forms releasing him [...] small finger tip. 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 Continue focus on PROM in elbow extension. Exercises reviewed for this. Patient was instructed in, performed, and provided with written handout for elbow/forearm strengthening in all planes, 10 reps, progressing to 30 reps pain/fatigue free before moving up in weight. Start with 3# (tolerated well in clinic). Issued soft stress ball for hide cooking operator strenghting, 5-10 minutes max, 2 x daily. [...] Therapist Signature: Lor Mantilla OTR/L, MOT, CHT, #[id number]([place]), #[id number]([place]) Visit # 4 Payor: BRADEN / Plan: BRADEN ORTIZ / Product Type: Commercial / documented in this encounter Plan of Treatment Not on file documented as of this encounter Visit Diagnoses Diagnosis Left elbow pain- Primary Pain in joint, upper arm Elbow stiffness, left Orthopedic aftercare Unspecified orthopedic aftercare documented in this encounter
--- OUTSIDE RECORDS SUMMARY | 2023-06-23 13:07 | XMS_ITS | Encounter Summary ---
Author Name Unknown Organization [facility] Address [address] [address] Care Team Providers Care Quill Machine Operator Name Role Phone Unavailable Primary Care Provider Unavailabl e Encounter Details Date Type Department Care Team Description 09/05/2022 Orders Only HIM DEPARTMENT Provider, [place] [address] Social History Tobacco Use Types Packs/Day Years [...]
--- OUTSIDE RECORDS SUMMARY | 2023-06-23 13:07 | XMS_ITS | Encounter Summary ---
Author Name Unknown Organization [facility] Address [address], [place] [address] Care Team Providers Care Emergency Room Orderly Name Role Phone Unavailable Primary Care Provider Unavailabl e Reason for Visit * (Routine) - Incomplete Specialty Diagnoses / Procedures Referred By Contac t Referred To Contact Procedures US Anesthesia Guided Block Benjamin Hayes MD [address] [place] [address] Referral ID Status Reason Start Date Expiration Date V isits Requested Visits Authorized [id number] Incomplete 09/05/2022 12/05/2023 1 1 Encounter Details Date Type Department Care Team Description 09/05/2022 7:10 AM CDT Ancillary Procedure [facility] [address] [place] [address] Social History Tobacco Use Types Packs/Day Years [...] the performing provider. ?? Benjamin Hayes MD [facility] US documented in this encounter Visit Diagnoses Not on filedocumented in this encounter
--- OUTSIDE RECORDS SUMMARY | 2023-06-23 13:07 | XMS_ITS | Encounter Summary ---
Author Name Unknown Organization [facility] Address [address], [place] [address] Care Team Providers Care Weaver Apprentice Name Role Phone Unavailable Primary Care Provider Unavailabl e Reason for Visit * Reason Comments Elbow Problem Encounter Details Date Type Department Care Team Description 09/30/2022 12:00 PM CDT Office Visit [facility] Hand Therapy [address] [place] [address] Lor Mantilla OTR/L [address] [place], [place] [phone] Left elbow pain (Primary Dx); Elbow stiffness, [...] intact. TODAY'S TREATMENT INTERVENTION: Manual Therapy CPT 00679 (10 minutes) Therapist completes Gua Sha to biceps/forearm followed by hands on STM to loosen tight biceps priorto stretching. Grade I, II joint elbow joint mobilizations prior to sets of stretching. Therapeutic Exercise CPT 74258 (20 minutes) Exercise: Therapist reviewed with pt [...] Therapist Signature: Lor Mantilla OTR/L, MOT, CHT, #[id number]([place]), #[id number]([place]) Visit # 3 Payor: BRADEN / Plan: BRADEN ORTIZ / Product Type: Commercial / documented in this encounter Plan of Treatment Not on file documented as of this encounter Visit Diagnoses Diagnosis Left elbow pain- Primary Pain in joint, upper arm Elbow stiffness, left Orthopedic aftercare Unspecified orthopedic aftercare documented in this encounter
--- OUTSIDE RECORDS SUMMARY | 2023-06-23 13:07 | XMS_ITS | Encounter Summary ---
Author Name Unknown Organization [facility] Address [address] [address] Care Team Providers Care Landscape Technician Name Role Phone Unavailable Primary Care Provider Unavailabl e Encounter Details Date Type Department Care Team Description 10/20/2022 10:00 AM CDT Office Visit [facility] [address] [place] [address] Sandip Alvarado PA-C [address] [place], [place] [phone] Left elbow pain (Primary Dx) Social History [...] were not included. Thank you for choosing [facility] for your health care visit today. Please read the contents below for important information regarding today's appointment. SeGan Angel Prints Diagnosis: Left elbow capitellar painful Osteochondritis Dissecans [...] all medication refills: Request a refill using Feedot or contact your pharmacy. MRI Scheduling: To schedule an MRI at [facility] please call [phone]. For [facility] please call [phone]. For [facility] please call [phone]. [facility] Workers' Compensation [address] [place] [address] (Phone) What is Know Your Cost? Know Your Cost is a service for patients and patient/members to call and receive personalized cost information and estimates across our care group. The phone number is (COST) and is open Thursday - Thursday from 8 a.m. to [address] Talib Ibrahim MD Orthopedic Surgery - Shoulder and Elbow Specialist [facility] Mondays & . SEE Roy Orthopedic Surgery - Shoulder and Elbow MAURA Smith Orthopedic Surgery - Shoulder and Elbow Non-operative Specialist Paperwork Requests/Questions Regarding Surgery Scheduling: Field Foreman: Kelly Ortiz Please Review Dr. Ibrahim at: [employer]/reviews [email or web address] documented in this encounter Progress Notes * [...] restrictions F/U: as needed Sandip Alvarado PA-C [facility] Shoulder and Elbow Service documented in this encounter Plan of Treatment Not on file documented as of this encounter Visit Diagnoses Diagnosis Left elbow pain- Primary Pain in joint, upper arm documented in this encounter
--- OUTSIDE RECORDS SUMMARY | 2023-06-23 13:07 | XMS_ITS | Clinical Summary ---
Author Name Unknown Organization [facility] Address [address] [place] [address] Care Team Providers Care Tool Grinder Name Role Phone Unavailable Primary Care Provider Unavailabl e Source Comments You are receiving this document as you are listed as the primary care provider,follow-up provider, or the patient has been referred to you for consultation.This is in compliance with the Medicare and[facility] EHR Incentive Program,which states Providers who transition their patient to another setting of careor provider of care or refers their patient to another provider of care shouldprovide summary care record for each transition of care or referral. [facility] Allergies No known active allergies Medications Medication [...] Overview: Added automatically from request for surgery [id number] Family History Medical History Relation Name Comments [...] Additional history exists Influenza (#1) 2023 06/05/2020, 12/0 10/2018, 04/22/2019, Additional history exists Zoster/Shingles (1 of 2) 2050 Hib Completed 03/30/2001, 07/17, 2000 Pneumococcal Aged Out 06/30/2001, 12/16, 2000, Additional history exists No longer eligible based on patient's age to complete this topic IPV (Polio) Completed 03/31/2005, 09/17, 2000, Additional history exists MCV4 Aged Out 10/25/2012 No longer eligi ble based on patient's age to complete this topic HepA Aged Out No longer eligi ble based on patient's age to complete this topic DIANA VENTURA [id number] Hong Barnes Personal/Family Self [address] [place] [address] DIANA VENTURA [id number]
--- OUTSIDE RECORDS SUMMARY | 2023-06-23 13:07 | XMS_ITS | Encounter Summary ---
Author Name Unknown Organization [facility] Address [address] [address] Care Team Providers Care Scroll Saw Operator Name Role Phone Unavailable Primary Care Provider Unavailabl e Reason for Visit * Reason Comments Elbow Problem Encounter Details Date Type Department Care Team Description 09/23/2022 12:00 PM CDT Office Visit [facility] Hand Therapy [address] [place] [address] Lor Mantilla OTR/L [address] [place], [place] [phone] Left elbow pain (Primary Dx); Elbow stiffness, [...] olecranon. TODAY'S TREATMENT INTERVENTION: Manual Therapy CPT 99414 (15 minutes) Therapist completes Gua Sha to biceps/forearm followed by hands on STM to loosen tight biceps priorto stretching. Grade I, II joint elbow joint mobilizations prior to sets of stretching. Therapeutic Exercise CPT 07939 (30 minutes) Exercise: Therapist reviewed with pt [...] Therapist Signature: Lor Mantilla OTR/L, MOT, CHT, #[id number]([place]), #[id number]([place]) Visit # 2 Payor: BRADEN / Plan: BRADEN ORTIZ / Product Type: Commercial / documented in this encounter Plan of Treatment Not on file documented as of this encounter Visit Diagnoses Diagnosis Left elbow pain- Primary Pain in joint, upper arm Elbow stiffness, left Orthopedic aftercare Unspecified orthopedic aftercare documented in this encounter
--- OUTSIDE RECORDS SUMMARY | 2023-06-23 13:07 | XMS_ITS | Encounter Summary ---
Author Name Unknown Organization [facility] Address [address] [address] Care Team Providers Care Circuit Board Drafter Name Role Phone Unavailable Primary Care Provider Unavailabl e Reason for Visit * Reason Comments Elbow Problem * Therapies (Routine) - New Request Specialty Diagnoses / Procedures Referred By Eufemia hernandez Referred To Contact Diagnoses Left elbow pain Elbow stiffness, left Talib Ibrahim MD [address] [place] [address] Referral ID Status Reason Start Date Expiration Date V isits Requested Visits Authorized [id number] New Request 07/28/2022 07/28/2023 1 1 Encounter Details Date Type Department Care Team Description 09/15/2022 12:00 PM CDT [facility] [address] [place] [address] Lor Mantilla OTR/John [address] [place] [address] Left elbow pain (Primary Dx); [...] olecranon. TODAY'S TREATMENT INTERVENTION: OT Evaluation CPT 91315 (20 minutes untimed) A Moderate Complexity Occupational [...] agreement with care plan. Therapeutic Exercise CPT 64108 (25 minutes) Exercise: Patient was instructed in, [...] Therapist Signature: Lor Mantilla OTR/John, MOT, CHT, #[id number]([place]), #[id number]([place]) Visit # 1 Payor: BRADEN / [...]
--- OUTSIDE RECORDS SUMMARY | 2023-06-23 13:08 | XMS_ITS | Encounter Summary ---
Author Name Unknown Organization [facility] Address [address] [place] [address] Care Team Providers Care Prototype Technician Name Role Phone Unavailable Primary Care Provider Unavailabl e Encounter Details Date Type Department Care Team Description 07/15/2022 Telephone [facility] [address] [place], [place] [phone] Talib Mckee MD [address] [facility] [place] [phone] Social History Tobacco Use Types Packs/Day Years [...] 07/28/22. Davina Holly ATC 07/15/2022, 9:55 AM LLURGICAL SPECIALIST documented in this encounter Plan of Treatment Not on file documented as of this encounter Visit Diagnoses Not on filedocumented in this encounter
--- OUTSIDE RECORDS SUMMARY | 2023-06-23 13:08 | XMS_ITS | Encounter Summary ---
Author Name Unknown Organization [facility] Address [address] [address] Care Team Providers Care Master Ocean Yacht Name Role Phone Unavailable Primary Care Provider Unavailabl e Reason for Referral * Procedure/Equipment (Routine) - Incomplete Specialty Diagnoses / Procedures Referred By Contac t Referred To Contact Procedures JO Inlight Camera Images Talib Ibrahim MD [address] [place] [place] [address] Referral ID Status Reason Start Date Expiration Date V isits Requested Visits Authorized [id number] Incomplete 09/05/2022 12/05/2023 1 1 * Procedure/Equipment (Routine) - Incomplete Specialty Diagnoses / Procedures Referred By Contac t Referred To Contact Procedures JO Arthroscopy Elbow Rt Talib Ibrahim MD [address] [place] [address] Referral ID Status Reason Start Date Expiration Date V isits Requested Visits Authorized [id number] Incomplete 09/05/2022 12/05/2023 1 1 Encounter Details Date Type Department Care Team Description 09/05/2022 Notes/Orders [facility] Surgery Center [address] [place] [address] Talib Ibrahim MD [address] [place] [place] [address] Social History Tobacco Use Types [...]
--- OUTSIDE RECORDS SUMMARY | 2023-06-23 13:08 | XMS_ITS | Encounter Summary ---
Author Name Unknown Organization [facility] Address [address] [address] Care Team Providers Care Benefits Specialist Recruiter Name Role Phone Unavailable Primary Care Provider Unavailabl e Reason for Referral * (Routine) - Incomplete Specialty Diagnoses / Procedures Referred By Contac t Referred To Contact Procedures US Anesthesia Guided Block Benjamin Hayes MD [address] [place] [address] Referral ID Status Reason Start Date Expiration Date V isits Requested Visits Authorized [id number] Incomplete 09/05/2022 12/05/2023 1 1 Reason for Visit * Auth/Cert (Routine) Specialty Diagnoses / Procedures Referred By Contac t Referred To Contact Diagnoses Elbow stiffness, left Procedures ARTHROSCOPic ELBOW DEBRIDEMENT OCD LESION, OSTEOCAPSULAR RELEASE, OPEN ULNAR NERVE DECOMPRESSION POSSIBLE TRANSPOSITION, MANIPULATION UNDER ANESTHESIA Referral ID Status Reason Start Date Expiration Date Visits Re quested Visits Authorized [id number] 1 1 Encounter Details Date Type Department Care Team Description 09/05/2022 7:02 AM CDT - 09/05/2022 11:59 PM CDT Hospital Encounter [facility] [address] [place] [address] Talib Ibrahim MD [address] [place] [address] Discharge Disposition: Home Social History Tobacco Use [...] DVT (Deep Vein Thrombosis): Prevention: General Info (Georgian) documented in this encounter Medications at Time [...] Ibrahim MD - 09/05/2022 8:05 PM CDT [facility] [place] Orthopedic Surgery Operative Note PATIENT NAME: Hong Barnes DATE OF : 2000 DATE OF SURGERY: 09/05/2022 PRIMARY SURGEON: Talib Ibrahim MD ASSISTANTS: MAURA Smith SALES DEMONSTRATOR: There were no residents available to assist on this case. Andrew was required as a cable splicer assistant to assist with positioning of the patient, prepping and draping of the patient, positioning of the extremity throughout the procedure allowing for retraction and implantation of the components. The chemistry research assistant also assisted with closure of the [...] was carefully released from the ligament of [place] through Clifton's ligament and then releasing both [...] needed. Talib Ibrahim MD Attending Orthopaedic Surgeon [facility] Shoulder and Elbow Service * Sandip Alvarado PA-C - 09/05/2022 11:18 AM CDT [facility] [place] Brief Operative Progress Note Surgery Date: 09/05/2022 [...] The procedure was medically necessary for an chemistry research assistant because Dr. Ibrahim needed the operative [...] the performing provider. ?? Benjamin Hayes MD [facility] documented in this encounter Visit Diagnoses [...] CDT 1,000 mg bupivacaine-epinephrine PF (SENSORCAINE) 0.5% -1:455884 injection ONCE PRN, Starting on Thu09/05/22 at [...] (SUBLIMAZE) injection 25-50 mcg 25-50 mcg, Intravenous, [id number], Pain, Starting on Thu09/05/22 at 1049, Until [...] (Started - Prov ider: Demetrius Menendez APRN, CNC GRINDER) gabapentin (NEURONTIN) capsule 600 mg 600 mg, [...] (Given - Provid er: Ty Bennett APRN, CNC GRINDER) Continuous Medication Order 09/03/2022 09/04/2022 09/05/2022 lactated ringers infusion Intravenous, at 30 mL/hr, CONTINUOUS, Starting on Thu09/05/22 at 0730, Pre-op 0842 (Started - Prov ider: Demetrius Menendez APRN, CNC GRINDER)0939 (Anesthesia Fluid - Provider: Ty Bennett APRN, CNC GRINDER)1047 (Started - Provider: Ty Bennett APRN, CNC GRINDER)1110 (Anesthesia Fluid - Provider: Ty Bennett APRN, CNC GRINDER) lactated ringers infusion 30 mL/hr, Intravenous, CONTINUOUS, Starting on Thu09/05/22 at 0730, Pre-op 0730 (Due) PRN Medication Order 09/03/2022 09/04/2022 09/05/2022 bupivacaine-epinephrine PF (SENSORCAINE) 0.5% -1:872529 injection ONCE PRN, Starting on Thu09/05/22 at [...] (SUBLIMAZE) injection 25-50 mcg 25-50 mcg, Intravenous, [id number], Pain, Starting on Thu09/05/22 at 1049, Until [...]
--- OUTSIDE RECORDS SUMMARY | 2023-06-23 13:08 | XMS_ITS | Encounter Summary ---
Author Name Unknown Organization [facility] Address [address] [address] Care Team Providers Care Analysis Engineer Name Role Phone Unavailable Primary Care Provider Unavailabl e Encounter Details Date Type Department Care Team Description 09/05/2022 8:42 AM CDT Anesthesia Event [facility] [place] [address] [place] [address] Diana Mcgraw MD [address] [place] [address] Benjamin Hayes MD [address] [place] [address] Anesthesia Record Procedure Summary Procedure Name Responsible [...] Placement Date: 09/05/22; Pre-existing: No; Inserted by?: PUPPET MAKER; Size (Gauge): 20 G; Orientation: Right; Site Prep: Alcohol; Local Anesthetic: Injectable, 0.5 ML intradermal, 1.0 ML intradermal; Insertion attempts: 1; Blood draw with insertion?: no; Patient Tolerance: Tolerated well; Removal Date: 09/05/22; Removal Time: 1230; Removal Reason: Patient discharged; Catheter Tip: Intact 09/05/22 0000 by Meri Nava APRN, PUPPET MAKER 09/05/22 1230 by Norah Bauman RN ETT Placement Date: 09/05/22; Placement Time: 0855; Placed By: PUPPET MAKER; Induction Type: Pre-O2, IV; Masking: Easy; ETT [...] Yes 09/05/22 0855 by Demetrius Menendez APRN, PUPPET MAKER 09/05/22 1105 by Ty Bennett APRN, PUPPET MAKER Incision/Surgical Site 09/05/22; 0940; #1; No; Elbow; [...] Mcgraw MD - 09/05/2022 12:49 PM CDT [facility] [place] Anesthesia Post-op Note Patient: Hong Barnes Post-Op [...] Mcgraw MD - 09/05/2022 7:55 AM CDT [facility] [place] Anesthesia Pre-op Evaluation Procedure: ARTHROSCOPic ELBOW DEBRIDEMENT [...]
--- OUTSIDE RECORDS SUMMARY | 2023-06-23 13:08 | XMS_ITS | Encounter Summary ---
Author Name Unknown Organization [facility] Address [address], [place] [address] Care Team Providers Care Bolt Man Name Role Phone Unavailable Primary Care Provider Unavailabl e Reason for Visit * Procedure/Equipment (Routine) - Closed Specialty Diagnoses / Procedures Referred By Contac t Referred To Contact Diagnoses Left elbow pain Elbow stiffness, left Procedures MR Elbow Lt WO IV Cont Talib Ibrahim MD [address] [place] [address] Referral ID Status Reason Start Date Expiration Date Visits Re quested Visits Authorized [id number] Closed 07/28/2022 10/27/2023 1 1 Encounter Details Date Type Department Care Team Description 08/04/2022 9:50 AM CDT Ancillary Procedure [facility] Radiology MRI [address] [place] [address] Talib Ibrahim MD [address] [place], [place] [address] [place] [address] Left elbow pain; Elbow stiffness, [...] MR ELBOW LT WO IV CONT LOCATION: [facility] DATE/TIME: 08/04/2022 10:23 AM INDICATION: Chronic elbow [...] EXAM: ELBOW LT WO IV CONT LOCATION: [facility] DATE/TIME: 08/04/2022 10:23 AM INDICATION: Chronic elbow [...]
--- OUTSIDE RECORDS SUMMARY | 2023-06-23 13:08 | XMS_ITS | Encounter Summary ---
Author Name Unknown Organization [facility] Address [address], [place] [address] Care Team Providers Care Cement Mason [employer] Stre[employer] Name Role Phone Unavailable Primary Care Provider Unavailabl e Reason for Visit * Procedure/Equipment (Routine) - Incomplete Specialty Diagnoses / Procedures Referred By Contac t Referred To Contact Diagnoses Left elbow pain Procedures XR Elbow Lt 2 Views Talib Ibrahim MD [address] [place] [address] Referral ID Status Reason Start Date Expiration Date V isits Requested Visits Authorized [id number] Incomplete 07/28/2022 10/27/2023 1 1 Encounter Details Date Type Department Care Team Description 07/28/2022 9:45 AM CDT Ancillary Procedure [facility] Radiology [address] [place] [address] Talib Ibrahim MD [address] [place] [address] Left elbow pain Social History [...] EXAM: XR ELBOW LT 2 VIEWS LOCATION: [facility] DATE/TIME: 07/28/2022 9:55 AM INDICATION: Ocd COMPARISON: MRI from 08/05/2018 IMPRESSION: There is a 1 cm subchondral area of irregular lucency in the capitellum consistent with an osteochondral lesion. Consider MRI to evaluate stability. No acute fracture or malalignment. No significant degenerative changes. No elbow joint effusion. Procedure Note Ty Ferrera MD - 07/28/2022 EXAM: XR ELBOW LT 2 VIEWS LOCATION: [facility] DATE/TIME: 07/28/2022 9:55 AM INDICATION: Ocd COMPARISON: [...]
--- OUTSIDE RECORDS SUMMARY | 2023-06-23 13:08 | XMS_ITS | Encounter Summary ---
Author Name Unknown Organization [facility] Address [address] [address] Care Team Providers Care Knot Tying Operator Name Role Phone Unavailable Primary Care Provider Unavailabl e Reason for Referral * Procedure/Equipment (Routine) - Incomplete Specialty Diagnoses / Procedures Referred By Contac t Referred To Contact Procedures JO Arthroscopy Elbow Rt Talib Ibrahim MD [address] [place] [address] Referral ID Status Reason Start Date Expiration Date V isits Requested Visits Authorized [id number] Incomplete 09/05/2022 12/05/2023 1 1 Reason for Visit * Procedure/Equipment (Routine) - Incomplete Specialty Diagnoses / Procedures Referred By Controse t Referred To Contact Procedures JO Arthroscopy Elbow Rt Talib Ibrahim MD [address] [place] [address] Referral ID Status Reason Start Date Expiration Date V isits Requested Visits Authorized [id number] Incomplete 09/05/2022 12/05/2023 1 1 Encounter Details Date Type Department Care Team Description 09/05/2022 7:04 AM CDT - 09/05/2022 11:59 PM CDT Hospital Encounter [facility] Surgery Center [address] [place] [address] Discharge Disposition: Home Social History Tobacco [...]
--- OUTSIDE RECORDS SUMMARY | 2023-06-23 13:08 | XMS_ITS | Encounter Summary ---
Author Name Unknown Organization [facility] Address [address] [address] Care Team Providers Care Crystal Finisher Name Role Phone Unavailable Primary Care Provider Unavailabl e Reason for Visit * Auth/Cert (Routine) Specialty Diagnoses / Procedures Referred By Contac t Referred To Contact Diagnoses Elbow stiffness, left Procedures ARTHROSCOPic ELBOW DEBRIDEMENT OCD LESION, OSTEOCAPSULAR RELEASE, OPEN ULNAR NERVE DECOMPRESSION POSSIBLE TRANSPOSITION, MANIPULATION UNDER ANESTHESIA Referral ID Status Reason Start Date Expiration Date Visits Re quested Visits Authorized [id number] 1 1 Encounter Details Date Type Department Care Team Description 09/05/2022 8:30 AM CDT - 09/05/2022 11:20 AM CDT Surgery [facility] Ambulatory Surgery Center [address] [place] [address] Talib Ibrahim MD [address] [place] [address] ARTHROSCOPIC ELBOW DEBRIDEMENT Osteochondritis Dissecans LESION, OSTEOCAPSULAR [...] MD - 09/05/2022 8:05 PM CDT [facility] Orthopedic Surgery Operative Note PATIENT NAME: Hong Barnes DATE OF : 2000 DATE OF SURGERY: 09/05/2022 PRIMARY SURGEON: Talib Ibrahim MD ASSISTANTS: MAURA Smith BOTTLE LABEL INSPECTOR: There were no residents available to assist on this case. Andrew was required as a first responder to assist with positioning of the patient, prepping and draping of the patient, positioning of the extremity throughout the procedure allowing for retraction and implantation of the components. The assistant men's lacrosse coach also assisted with closure of the [...] was carefully released from the ligament of [place] through Clifton's ligament and then releasing both [...] needed. Talib Ibrahim MD Attending Orthopaedic Surgeon [facility] Shoulder and Elbow Service * Sandip Alvarado PA-C - 09/05/2022 11:18 AM CDT [facility] [place] Brief Operative Progress Note Surgery Date: 09/05/2022 [...] procedure was medically necessary for an assistant men's lacrosse coach because Dr. Ibrahim needed the operative [...] the performing provider. ?? Benjamin Hayes MD [facility] documented in this encounter Visit Diagnoses [...] CDT 1,000 mg bupivacaine-epinephrine PF (SENSORCAINE) 0.5% -1:725777 injection ONCE PRN, Starting on Thu09/05/22 at [...] (SUBLIMAZE) injection 25-50 mcg 25-50 mcg, Intravenous, [id number], Pain, Starting on Thu09/05/22 at 1049, Until [...] 09/03/2022 09/04/2022 09/05/2022 bupivacaine-epinephrine PF (SENSORCAINE) 0.5% -1:705123 injection ONCE PRN, Starting on Thu09/05/22 at [...] (SUBLIMAZE) injection 25-50 mcg 25-50 mcg, Intravenous, [id number], Pain, Starting on Thu09/05/22 at 1049, Until [...]
--- OUTSIDE RECORDS SUMMARY | 2023-06-23 13:08 | XMS_ITS | Encounter Summary ---
Author Name Unknown Organization [facility] Address [address], [place] [address] Care Team Providers Care Assistant Grocery Name Role Phone Unavailable Primary Care Provider Unavailabl e Reason for Visit * Procedure/Equipment (Routine) - Incomplete Specialty Diagnoses / Procedures Referred By Contac t Referred To Contact Diagnoses Left elbow pain Elbow stiffness, left Procedures XR Eye Foreign Body Talib Ibrahim MD [address] [place] [address] Referral ID Status Reason Start Date Expiration Date V isits Requested Visits Authorized [id number] Incomplete 07/29/2022 10/28/2023 1 1 Encounter Details Date Type Department Care Team Description 08/04/2022 9:40 AM CDT Ancillary Procedure [facility] [address] [place] [address] Talib Ibrahim MD [address] [place] [address] Left elbow pain; Elbow stiffness, left [...] CDT EXAM: XR EYE FOREIGN BODY LOCATION: [facility] DATE/TIME: 08/04/2022 9:39 AM INDICATION: Elbow pain, chronic, bone abnormality suspected, nondiagnostic xray; metal injury to left eye. please evaluate for metal prior to mri COMPARISON: None. IMPRESSION: Negative orbits. Both eyes are negative for metallic foreign bodies. Procedure Note Shine Wylie MD - 08/04/2022 EXAM: XR EYE FOREIGN BODY LOCATION: [facility] DATE/TIME: 08/04/2022 9:39 AM INDICATION: Elbow pain, [...]
--- OUTSIDE RECORDS SUMMARY | 2023-06-23 13:08 | XMS_ITS | Encounter Summary ---
Author Name Unknown Organization [facility] Address [address], [place] [address] Care Team Providers Care Travel Nurse Name Role Phone Unavailable Primary Care Provider Unavailabl e Reason for Referral * Procedure/Equipment (Routine) - Closed Specialty Diagnoses / Procedures Referred By Contac t Referred To Contact Diagnoses Left elbow pain Elbow stiffness, left Procedures MR Elbow Lt WO IV Cont Talib Ibrahim MD [address] [place] [id number] Referral ID Status Reason Start Date Expiration Date Visits Re quested Visits Authorized [id number] Closed 07/28/2022 10/27/2023 1 1 * Therapies (Routine) - New Request Specialty Diagnoses / Procedures Referred By Contac t Referred To Contact Diagnoses Left elbow pain Elbow stiffness, left Talib Ibrahim MD [address] [place] [id number] Referral ID Status Reason Start Date Expiration Date V isits Requested Visits Authorized [id number] New Request 07/28/2022 07/28/2023 1 1 Scheduling Instructions Your clinician has recommended an appointment with [facility]. You can quickly make your appointment online at [email or web address]. You can also call [phone] for help scheduling your appointment. We suggest [...] TRANSPOSITION, MANIPULATION UNDER ANESTHESIA Talib Ibrahim MD [address] [place] [address] Referral ID Status Reason Start Date Expiration Date V isits Requested Visits Authorized [id number] Incomplete 07/28/2022 10/27/2023 1 1 * Procedure/Equipment (Routine) - Incomplete Specialty Diagnoses / Procedures Referred By Contac t Referred To Contact Diagnoses Left elbow pain Procedures XR Elbow Lt 2 Views Talib Irbahim MD [address] [place] [address] Referral ID Status Reason Start Date Expiration Date V isits Requested Visits Authorized [id number] Incomplete 07/28/2022 10/27/2023 1 1 Reason for Visit * Reason Comments CONSULT Encounter Details Date Type Department Care Team Description 07/28/2022 9:40 AM CDT Office Visit [facility] [address] [place] [address] Talib Ibrahim MD [address] [place] [address] Left elbow pain (Primary Dx); [...] Patient Instructions * Patient Instructions* Isabel Escobar, [facility] - 07/28/2022 9:40 AM CDT Images from the original note were not included. Thank you for choosing [facility] for your health care visit today. Please read the contents below for important information regarding today's appointment. [email or web address] Diagnosis: Elbow Pain Information: There are multiple [...] relief but do not usually result in custodial improvement. An elbow release is asurgery that can be done arthroscopically or open and can provide superintendent container terminal relief of pain and approximately 30-40 degrees [...] is similar - about 30-40 degrees of custodial motion improvement and durable pain relief at [...] For more information, please see my website: [employer]/elbowstiffness/ Dr. Ibrahim's Pre-operative Education Video: [employer]/beforesurgeryvideo/ Dr. Hirsch Surgery Recovery Video: [employer]/surgeryrecoveryvideo/ Dr. Hirsch elbow surgery recovery video: [employer]/elbowsurgeryrecoveryvnayelyo/ Dr. Hirsch Elbow Surgery Packet: [employer]/elbowsurgeryedu/ Treatment plan: Review Dr. Ibrahim's Elbow Stiffness [...] all medication refills: Request a refill using [employer] or contact your pharmacy. MRI Scheduling: To schedule an MRI at [facility] please call [phone]. For [facility] please call [phone]. For [facility] please call [phone]. [facility] Workers' Compensation [address] [place] [address] (Phone) What is Know Your Cost? Know Your Cost is a service for patients and patient/members to call and receive personalized cost information and estimates across our care group. The phone number is (COST) and is open Thursday - Thursday from 8 a.m[address] to [address] Talib Ibrahim MD Orthopedic Surgery - Shoulder and Elbow Specialist [facility] Mondays & . SEE Roy Orthopedic Surgery - Shoulder and Elbow MAURA Smith Orthopedic Surgery - Shoulder and Elbow Non-operative Specialist Paperwork Requests/Questions Regarding Surgery Scheduling: Cane Flume Feeding Machine Operator: Howiemichelle Diana Please Review Dr. Ibrahim at: [email or web address] documented in this encounter Progress Notes * [...] ago. He was originally seen in the [facility] in 2019 for the elbow. Xray's and [...] used smokeless tobacco. The patient lives in: [place]. The patient works in [employer] trade. They enjoy: hunting. FAMILY HISTORY: family [...] me. Talib Ibrahim MD Attending Orthopaedic Surgeon [facility] Shoulder and Elbow Service documented in [...] MR ELBOW LT WO IV CONT LOCATION: [facility] DATE/TIME: 08/04/2022 10:23 AM INDICATION: Chronic [...] MR ELBOW LT WO IV CONT LOCATION: [facility] DATE/TIME: 08/04/2022 10:23 AM INDICATION: Chronic [...] EXAM: XR ELBOW LT 2 VIEWS LOCATION: [facility] DATE/TIME: 07/28/2022 9:55 AM INDICATION: Ocd COMPARISON: MRI from 08/05/2018 IMPRESSION: There is a 1 cm subchondral area of irregular lucency in the capitellum consistent with an osteochondral lesion. Consider MRI to evaluate stability. No acute fracture or malalignment. No significant degenerative changes. No elbow joint effusion. Procedure Note Ty Ferrera MD - 07/28/2022 EXAM: XR ELBOW LT 2 VIEWS LOCATION: [facility] DATE/TIME: 07/28/2022 9:55 AM INDICATION: Ocd [...]
--- OUTSIDE RECORDS SUMMARY | 2023-06-23 13:08 | XMS_ITS | Encounter Summary ---
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 Role Phone Unavailable Primary Care Provider Unavailabl e Reason for Referral * Procedure/Equipment (Routine) - Incomplete Specialty Diagnoses / Procedures Referred By Contac t Referred To Contact Procedures JO Inlight Camera Images Talib Ibrahim MD [address] [place] [id number] Referral ID Status Reason Start Date Expiration Date V isits Requested Visits Authorized [id number] Incomplete 09/05/2022 12/05/2023 1 1 Reason for Visit * Procedure/Equipment (Routine) - Incomplete Specialty Diagnoses / Procedures Referred By Eufemia hernandez Referred To Contact Procedures JO Inlight Camera Talib Evans MD [address] [place] [id number] Referral ID Status Reason Start Date Expiration Date V isits Requested Visits Authorized [id number] Incomplete 09/05/2022 12/05/2023 1 1 Encounter Details Date Type Department Care Team Description 09/05/2022 7:04 AM CDT - 09/05/2022 11:59 PM CDT Hospital Encounter [facility] [address] [place] [id number] Discharge Disposition: Home Social History Tobacco [...]
--- NOTE | 2023-06-23 13:10 | ED.NURSE ---
pt no longer in waiting room when went to room pt
--- NOTE | 2023-06-23 15:25 | W.ED.CHARTNO ---
ED Chart Note Chart Note Details Date: 06/23/23 Details: Patient left lobby without being seen by provider
== END 2023-06-23 13:11 | disposition left against medical advice (07) ==
PROVIDERS: Emergency Provider Student in an Organized Health Care Education/Training Program; PCP Family Medicine
DX: Z53.21 Procedure and treatment not carried out due to patient leaving prior to being seen by health care provider (principal)

== ENCOUNTER 2023-07-27 10:06 | Outpatient (CLI) | payer BC, SELFPAY | END 2023-07-27 10:07 | disposition home or self-care (01) | PROVIDERS: PCP Family Medicine; Visit Provider Family Medicine | DX: I10 Essential (primary) hypertension (principal) | CPT/HCPCS: 80048; 80061 ==

== ENCOUNTER 2023-08-15 16:53 | Emergency (ER) | payer BC, SELFPAY ==
[2023-08-15] VITALS (9 sets, daily range): BP systolic 95–133; BP diastolic 62–71; PULSE 91–101; RESP 16; TEMP 36.6; O2SAT 97–100; BMI 34.4
--- NOTE | 2023-08-15 17:09 | ED_ITS ---
HPI - General Adult General Time Seen by Provider: 17:09 Date Seen: 08/15/23 Chief complaint: Dizziness/Vertigo Stated complaint: dizzy and vomiting Time Seen by Provider: 08/15/23 16:55 Source: patient, RN notes reviewed and old records reviewed Mode of arrival: ambulatory Limitations: no limitations History of Present Illness HPI narrative: This 23-year-old male is ambulatory into the ED with concern not feeling well in symptoms that started prior to arrival. He was sleeping when I came in, the female that is in the room with him shake him to wake him up. He states he is tired right now. He was at a friend's house just standing there talking, he states all the sudden he started seeing spots that were black and white, felt dizzy. He went to leave to go to the truck and had about 2 maybe 4 bouts of emesis, he states it was yellow bile. This was within 10 minutes of the onset of the seeing of spots. He now it has just been having hot flashes and cold flashes. This past week it was feeling better, has a little residual cough. The week before everybody was sick with respiratory illness. He still has some mild chest congestion. He was put on amoxicillin, for got about it for 3-4 days but has been back on it for the last 2 days. He states he has a history of stomach ulcers. He has not had any diarrhea, no constipation. His dad in his aunt have had to have their gallbladders out. He has had no travel. He does endorse that he gets these dizzy spells frequently, he had 1 earlier this morning, had 1 a couple days ago before showering. It is the same where he will start seen spots with black and white in then feel dizzy. He feels like they are lasting longer. He denies any chest pain. He actually has no abdominal pain, no residual nausea, he tells me he is now hungry. He last ate lunch at about 11:00 a.m., had an omelet. He was in for an office visit on 07/30/2023 in given the amoxicillin for pharyngitis/sinusitis. He did have a negative strep that visit. He is on lisinopril/hydrochlorothiazide for hypertension. Related Data Home Medications Medication Instructions Recorded Confirmed aspirin 81 mg tablet,delayed 81 mg PO DAILY 08/15/23 08/15/23 release (Adult Aspirin Regimen) Previous Rx's Medication Instructions Recorded lisinopril 20 1 tab PO DAILY #90 tabs 07/28/23 mg-hydrochlorothiazide 12.5 mg tablet lorazepam 1 mg tablet 0.5 - 1 mg (0.5 - 1 x 1 mg) PO BID 07/28/23 PRN anxiety #30 tabs pantoprazole 40 mg tablet,delayed 40 mg PO QDAY #90 tabs 07/28/23 release (Protonix) prochlorperazine maleate 10 mg 10 mg PO TID PRN hiccups #30 tabs 07/28/23 tablet (Compazine) sertraline 100 mg tablet 100 mg PO QDAY #90 tabs 07/28/23 amoxicillin 875 mg tablet 875 mg PO BID #20 tabs 07/30/23 Allergies Allergy/AdvReac Type Severity Reaction Status Date / Time amoxicillin [From Augmentin] Allergy Severe Diarrhea Verified 07/30/23 08:53 clavulanic acid Allergy Severe Diarrhea Verified 07/30/23 08:53 [From Augmentin] [facility] Medical History (Updated 08/15/23 @ 19:05 by Aubree Lawton MD) Primary hypertension ?I10 - Essential (primary) hypertension (ICD-10) Gastroesophageal reflux disease ?K21.9 - Gastro-esophageal reflux disease without esophagitis (ICD-10) Situational depression ?F43.21 - Adjustment disorder with depressed mood (ICD-10) Generalized anxiety disorder ?F41.1 - Generalized anxiety disorder (ICD-10) Family History Father Heart disease Paternal Grandfather Heart disease Mother Family history of cervical cancer Social History (Updated 07/27/23 @ 09:34 by Virginia Mayfield ~ [facility]) Narrative: Single, no kids, nonsmoker, social EtOH, works at [employer] What is your current living situation?: I presently have a place to live Problems where you live: no known problems In the past 12 months, utilities in danger of being shut off: no In past 12 months, lack of transportation kept you from medical appts, meetings, work, or getting things needed for daily living: no In the past 12 mos, have been you worried that your food would run out before you had money to buy more?: never true Smoking Status: Never smoker Do you use any of these nicotine containing products: None Second hand tobacco smoke exposure: No How often do you have a drink containing alcohol: 2-4 times a month How many standard drinks containing alcohol do you have on a typical day: 1 or 2 How often do you have six or more drinks on one occasion: Never AUDIT-C Alcohol total score: 2 Non-prescribed substance use: denies use How often does anyone, including family, friends and others, physically hurt you : never How often does anyone, including family, friends and others, insult or talk down to you: never How often does anyone, including family, friends and others, threaten you with harm: never How often does anyone, including family, friends and others, scream or curse at you: never Little interest or pleasure in doing things: more than half the days Feeling down, depressed, or hopeless: several days service: No Exam Const: Vital Signs, click to edit/add: Vital Signs - 24 hr 08/15/23 16:57 08/15/23 17:20 Temperature 98 F Pulse Rate [Pulse Oximeter] 97 Pulse Rate [orthos tatic lying Left P ulse Oximeter] 96 Pulse Rate [orthos tatic sitting Left Pulse Oximeter] 98 Pulse Rate [orthos tatic standing Lef t Pulse Oximeter] 101 H Respiratory Rate 16 Blood Pressure [Ri ght Upper Arm] 133/70 Blood Pressure [or thostatic lying Ri ght Arm] 116/71 Blood Pressure [or thostatic sitting Right Arm] 106/69 Blood Pressure [or thostatic standing Right Arm] 95/62 Pulse Oximetry 100 Oxygen Delivery Me thod Room Air Course Course ED Course: Patient will have orthostatic blood pressures checked, will initiate IV fluids after they have been checked. Will check full complement of labs, obtain EKG, have him on cardiac monitoring and pulse oximetry. Will get a portable chest x- ray just to ensure no concern for pneumonia a developing after recent respiratory illness. He certainly has symptoms in his history that do suggest orthostatic hypotension. Reviewed with him that will ensure that there is no evidence of laboratory changes concerning for gallbladder, note his abdominal exam is completely benign at this time. He is actually hungry now. Will consider cardiac, respiratory/infectious etiology, possible electrolyte imbalances, orthostatic changes. Reevaluation(s) Time of Reevaluation #1: 17:36 Reevaluation #1: After patient evaluation, nursing staff did is orthostatics. His lying vitals are blood pressure 116/71 with heart rate 96, sitting 106/69 with heart rate 98, standing went to 95/62 the heart rate of 101 with his heart rate pop being back up to 120 after lying back down. He is certainly may need a dose reduction of his blood pressure medicine. Time of Reevaluation #2: 18:58 Reevaluation #2: Patient is sleeping, reviewed that he has influenza a with his presumed significant other. He was reportedly sick with some symptoms last week. Given his acute onset of symptoms, his significant fatigue and tiredness, cheeks starting to look flushed as he has been here, think he probably has new onset influenza A. We did also review his blood pressure concerns, this may be aff ected by illness but it is something to watch for. It is possible that he is on too much blood pressure medication and dosage may need to be dropped down. It is something they are going to have to follow up in clinic with his primary. Through the illness, may not need to take his blood pressure medication. We did discuss Tamiflu, given he has underlying hypertension and is feeling quite miserable, option is been made to prescribe this. Will also send Gypsy, medications from [facility]. Vital Signs Vital signs: Initial Vital Signs Temperature 98 F 08/15/23 16:57 Temperature Source Temporal Artery Scan 08/15/23 16:57 Pulse Rate 97 08/15/23 16:57 Respiratory Rate 16 08/15/23 16:57 Blood Pressure 133/70 08/15/23 16:57 Blood Pressure Mean 91 08/15/23 16:57 Blood Pressure Position Supine 08/15/23 16:57 Pulse Oximetry 100 08/15/23 16:57 Oxygen Delivery Method Room Air 08/15/23 16:57 Vital Signs Temperature 98 F 08/15/23 16:57 Pulse Rate 97 08/15/23 16:57 Respiratory Rate 16 08/15/23 16:57 Blood Pressure 133/70 08/15/23 16:57 Pulse Oximetry 100 08/15/23 16:57 Oxygen Delivery Method Room Air 08/15/23 16:57 Temperature 98 F 08/15/23 16:57 Pulse Rate 96 08/15/23 17:20 Respiratory Rate 16 08/15/23 16:57 Blood Pressure 116/71 08/15/23 17:20 Pulse Oximetry 100 08/15/23 16:57 Oxygen Delivery Method Room Air 08/15/23 16:57 Medications Administered Medications: Discontinued Medications Generic Name Dose Route Start Last Admin Trade Name Freq PRN Reason Stop Dose Admin Sodium Chloride 1,000 mls @ 1,000 mls/hr 08/15/23 17:22 08/15/23 18:00 0.9 % Sodium Chloride 1000 Ml IV 08/15/23 18:21 1,000 mls/hr .Q1H DURAN Administration Medical Decision Making Lab Data Lab results reviewed: Yes I reviewed the patient's lab results Labs: Lab Results 08/15/23 Range/Units 18:00 WBC 13.97 H (4.50-11.00) K/uL RBC 5.42 (4.30-5.90) m/uL Hgb 15.5 (13.5-17.5) gm/dL Hct 44.0 (37.0-53.0) % MCV 81 (80-100) fL MCH 29 (26-34) pg MCHC 35 (32-36) gm/dL RDW Coeff of Fabiano 11.7 (11.5-15.5) % Plt Count 375 (140-440) K/uL Neut % (Auto) 81.5 H (42.0-72.0) % Lymph % (Auto) 11.0 L (20-44) % Lucas % (Auto) 6.8 (0.0-11.0) % Eos % (Auto) 0.3 (0.0-7.0) % Baso % (Auto) 0.1 (0.0-3.0) % Neut # (Auto) 11.40 H (1.7-7.0) K/uL Lymph # (Auto) 1.50 (0.90-2.90) K/uL Lucas # (Auto) 0.90 (0.00-0.90) K/UL Eos # (Auto) 0.00 (0.00-0.50) K/uL Baso # (Auto) 0.00 (0.00-0.30) K/uL Abs Immat Gran (auto) 0.00 (0.00-0.30) K/uL Imm/Tot Granulo (auto) 0.3 % Sodium 136 (135-149) mmol/L Potassium 3.9 (3.6-5.1) mmol/L Chloride 100 (96-114) mmol/L Carbon Dioxide 27 (20-32) mmol/L Anion Gap 9 (7-15) mEq/L BUN 19 (5-24) mg/dL Creatinine 0.9 (0.5-1.5) mg/dL Estimated Creat Clear 131.81 Estimated GFR 123 ml/min Glucose 97 (60-115) mg/dL Lactate 1.4 (0.5-1.9) mmol/L Calcium 9.7 (8.4-10.6) mg/dL Total Bilirubin 0.6 (0.1-1.5) mg/dL AST 28 (12-35) U/L ALT 49 (4-50) U/L Alkaline Phosphatase 74 (40-150) U/L Troponin I < 0.01 L (0.01-0.04) ng/mL C-Reactive Protein 4.4 H (0.5-1.0) mg/dL NT-Pro-B Natriuret Pep < 20 pg/mL Total Protein 8.0 (6.0-8.3) g/dL Albumin 4.7 (3.3-5.0) g/dL Urine Color Yellow (Yellow) Urine Appearance Clear (Clear) Urine pH 6.5 (5.0-8.5) Ur Specific [place] 1.025 (1.000-1.030) Urine Protein 1+ A (Negative) Urine Glucose (UA) Negative (Negative) Urine Ketones Trace A (Negative) Urine Blood Negative (Negative) Urine Nitrite Negative (Negative) Urine Bilirubin 1+ A (Negative) Urine Urobilinogen 1.0 (0.2-1.0) Ur Leukocyte Esterase Negative (Negative) Urine RBC 0-2 (0-2) Urine WBC 0-2 (0-5) Ur Squamous Epith Cells None (None-Few) Urine Bacteria None (None) Coarse Granular Casts Few A (None) Urine Mucus Moderate A (None) SARS-CoV-2 (PCR) Negative SARS-CoV-2 (Negative) Influenza Type A (PCR) POSITIVE PCR FLU A A (Negative) Influenza Type B (PCR) Negative PCR FLU B (Negative) RSV (PCR) Negative PCR RSV (Negative) Imaging Data Chest x-ray: Attestation: I have reviewed the pertinent imaging results. Radiologist's impression: Patient: FAZAL GONZALES Facility:?[facility] Patient ID:?[id number] Site Patient ID:?[id number]. Site :?[id number] Study:?XRay Chest Portable-08/15/2023 5:44:29 PM Ordering Physician:Darryl Lawton Final Report: INDICATION: Cough. Portable chest. FINDINGS: Normal cardiac mediastinal silhouette. Lungs are clear. No effusion pneumothorax. Impression: No acute pulmonary process. Dictated by Yahaira Lopez MD @ 08/15/2023 6:03:28 PM (Electronic Signature) ECG Data Attestation: I personally reviewed and interpreted this ECG as follows: (Normal sinus rhythm, 80 beats per minute. No ischemic change, no infarct. QT corrected 423 milliseconds P) Critical Care Time Critical Care Time Critical Care Time: No Discharge Plan Discharge Clinical Impression: Influenza A, Orthostatic hypotension Patient Disposition: Home, Self-Care Condition: Stable Instructions: Influenza (ED), Hypotension (ED) Additional Instructions: Start Tamiflu tonight and take as prescribed. If you have recurrent nausea, can use the Zofran per prescription. Drink plenty of fluids. Your appetite for solids may diminish through this. Can use Tylenol and ibuprofen as needed for any fever, body aches or headache. You may need to hold her blood pressure medicine through this illness. I do need you to follow up in clinic with Dr. Dunn within the next 1-2 weeks, have your blood pressure rechecked. If you continue to have spells of orthostatic hypotension once you are feeling better, you likely need to have the dosage of your blood pressure medicine decreased. Activity Level: Activity as Tolerated Discharge Diet: Heart Healthy (2 gm sodium, low fat) Prescriptions: No Action sertraline 100 mg tablet 100 mg PO QDAY Qty: 90 3RF lisinopril-hydrochlorothiazide 20-12.5 mg tablet 1 tab PO DAILY Qty: 90 3RF pantoprazole [Protonix] 40 mg tablet,delayed release (DR/EC) 40 mg PO QDAY Qty: 90 1RF lorazepam 1 mg tablet 0.5 - 1 mg PO BID PRN (Reason: anxiety) Qty: 30 1RF prochlorperazine maleate [Compazine] 10 mg tablet 10 mg PO TID PRN (Reason: hiccups) Qty: 30 1RF amoxicillin 875 mg tablet 875 mg PO BID Qty: 20 0RF Rx Instructions: Not allergic. Had diarrhea from Augmentin aspirin [Adult Aspirin Regimen] 81 mg tablet,delayed release (DR/EC) 81 mg PO DAILY Follow Up/Referrals: Manjit Dunn MD [Primary Care Provider] - Stand Alone Forms: [facility] Info Instructions
--- NOTE | 2023-08-15 17:20 | XR_ITS ---
Patient: FAZAL GONZALES Facility:?[facility] Patient ID:?[id number] Site Patient ID:?[id number]. Site :?[id number] Study:?XRay-Chest Portable-08/15/2023 5:44:29 PM Ordering Physician:Darryl Lawton Final Report: INDICATION: Cough. Portable chest. FINDINGS: Normal cardiac mediastinal silhouette. Lungs are clear. No effusion pneumothorax. Impression: No acute pulmonary process. Dictated by Yahaira Lopez MD @ 08/15/2023 6:03:28 PM Signed by:?Yahaira Lopez MD @08/15/2023 6:03:28 PM (Electronic Signature)
[2023-08-15] MEDS: 0.9 % SODIUM CHLORIDE 1000 ml 1,000 ML IV (18:00)
[2023-08-15 18:10] LABS: Lactate* 1.4 mmol/L (0.5-1.9)
[2023-08-15 18:12] LABS: Basophils Percent Auto 0.1 % (0.0-3.0); Eosinophils Percent Auto 0.3 % (0.0-7.0); Hemoglobin* 15.5 gm/dL (13.5-17.5); Immature Granulocytes Pct Auto 0.3 %; Mean Corpuscular HGB Conc 35 gm/dL (32-36); Mean Corpuscular Hemoglobin 29 pg (26-34); Mean Corpuscular Volume 81 fL (80-100); Monocytes Percent Auto 6.8 % (0.0-11.0); Neutrophils Percent Auto 81.5 % (42.0-72.0); Platelet Count* 375 K/uL (140-440); RDW Coefficient of Variation % 11.7 % (11.5-15.5); Red Blood Count 5.42 m/uL (4.30-5.90); White Blood Count* 13.97 K/uL (4.50-11.00)
[2023-08-15 18:14] LABS: Slide Review Reflex No
[2023-08-15 18:18] LABS: Appearance Urine Clear (Clear); Bilirubin Urine 1+ (Negative); Blood Urine Negative (Negative); Color Urine Yellow (Yellow); Glucose Urine Negative (Negative); Ketones Urine Trace (Negative); Leukocyte Esterase Urine Negative (Negative); Nitrite Urine Negative (Negative); Protein Urine 1+ (Negative); Specific Gravity Urine 1.025 (1.000-1.030); pH Urine 6.5 (5.0-8.5)
[2023-08-15 18:27] LABS: RBC Urine 0-2 (0-2); WBC Urine 0-2 (0-5)
[2023-08-15 18:28] LABS: Coarse Granular Casts Urine Few; Mucus Urine Moderate
[2023-08-15 18:29] LABS: Albumin* 4.7 g/dL (3.3-5.0); Chloride* 100 mmol/L (96-114); Potassium* 3.9 mmol/L (3.6-5.1); Sodium* 136 mmol/L (135-149)
[2023-08-15 18:31] LABS: Creatinine* 0.9 mg/dL (0.5-1.5); Est. Creatinine Clearance* 131.81; Estimated Glomerular Filt Rate 123 ml/min
[2023-08-15 18:32] LABS: Alanine Aminotransferase* 49 U/L (4-50); Alkaline Phosphatase* 74 U/L (40-150); Anion Gap 9 mEq/L (7-15); Aspartate Amino Transferase* 28 U/L (12-35); Bilirubin Total* 0.6 mg/dL (0.1-1.5); Blood Urea Nitrogen* 19 mg/dL (5-24); Carbon Dioxide* 27 mmol/L (20-32); Glucose* 97 mg/dL (60-115)
[2023-08-15 18:33] LABS: Calcium* 9.7 mg/dL (8.4-10.6)
[2023-08-15 18:35] LABS: C Reactive Protein* 4.4 mg/dL (0.5-1.0)
[2023-08-15 18:49] LABS: PCR FLU A POSITIVE PCR FLU A (Negative); PCR FLU B Negative PCR FLU B (Negative); PCR RSV Negative PCR RSV (Negative); SARS PCR* Negative SARS-CoV-2 (Negative)
[2023-08-15 18:51] LABS: NT Pro B Type NatriureticPept* < 20 pg/mL; Troponin I* < 0.01 ng/mL (0.01-0.04)
== END 2023-08-15 19:20 | disposition home or self-care (01) ==
PROVIDERS: Emergency Provider Family Medicine; PCP Family Medicine
DX: J10.1 Influenza due to other identified influenza virus with other respiratory manifestations (principal); I95.1 Orthostatic hypotension
CPT/HCPCS: 36415; 71045; 80053; 81001; 83605; 83880; 84484; 85025; 86140; 87631; 93005; 94761; 96360; 99284; 99285; J7030